=== PATIENT | female | born 1980 | race Caucasian/White ===

== ENCOUNTER 2018-01-13 13:07 | Outpatient (CLI) | payer MEDICAID, SELFPAY ==
[2018-01-14 17:36] LABS: Alternaria Tenuis IgE <0.35 kU/L; Aspergillus Fumigatus IgE <0.35 kU/L; Bermuda Grass IgE 0.65 kU/L; Cockroach IgE <0.35 kU/L; Cottonwood IgE <0.35 kU/L; D Farinae IgE <0.35 kU/L; D Pteronyssinus IgE <0.35 kU/L; Eastern Sycamore IgE <0.35 kU/L; Elm IgE <0.35 kU/L; Epicoccum purpurascens IgE <0.35 kU/L; Giant Ragweed IgE <0.35 kU/L; Oak IgE <0.35 kU/L; Penicillium chrysogenum IgE <0.35 kU/L; Red Sorrel IgE <0.35 kU/L; Rough Pigweed IgE <0.35 kU/L; Silver Birch IgE 0.95 kU/L; Stemphyllium IgE <0.35 kU/L; Walnut Tree IgE <0.35 kU/L
[2018-01-14 18:19] LABS: Cat Epithelium IgE <0.35 kU/L; Cladosporium IgE <0.35 kU/L; Cocklebur IgE <0.35 kU/L; Dog Dander IgE <0.35 kU/L; Lamb's Quarter IgE <0.35 kU/L; Short Ragweed IgE 0.79 kU/L; Timothy Grass IgE 8.39 kU/L
[2018-01-14 18:33] LABS: Wormwood IgE <0.35 kU/L
[2018-01-16 16:02] LABS: CLASS 0; Cedar Red IgE <0.10 kU/L (<0.35); Fusarium oxysporum/vasinfectum <0.35 kU/L (<0.35); Rhodotorula IgE <0.35 kU/L (<0.35)
== END 2018-01-13 13:27 ==
PROVIDERS: PCP Family Medicine; Visit Provider Otolaryngology Otolaryngology/Facial Plastic Surgery
DX: J30.9 Allergic rhinitis, unspecified (principal)
CPT/HCPCS: 36415; 86003

== ENCOUNTER 2022-11-29 09:00 | Outpatient (REF) | payer MEDICAID, SELFPAY | END 2022-11-29 09:01 | disposition home or self-care (01) | LOC: LBN 09:00 | PROVIDERS: PCP Physician Assistant; Visit Provider Registered Nurse Maternal Newborn | DX: J03.01 Acute recurrent streptococcal tonsillitis (principal); J34.3 Hypertrophy of nasal turbinates; H69.83 Other specified disorders of Eustachian tube, bilateral | CPT/HCPCS: 87070 ==

== ENCOUNTER → 2023-04-17 02:39 | Outpatient (CLI) | payer MEDICAID, SELFPAY ==
--- OUTSIDE RECORDS SUMMARY | 2023-04-17 03:08 | XMS_ITS | Continuity of Care Document ---
Author Name Unknown Organization [facility] Address [address] [place] [address] Care Team Providers Care Agricultural Research Technologist Name Role Phone Ese Leon Primary Care Physician [facility] [id number] Date(s): 03/13/22 - 03/13/[address] [id number] Discharge Disposition: Home or Self Care Attending Physician: Kay Macedo DNP Admitting Physician: Kay Macedo DNP Allergies, Adverse Reactions, Alerts Substance Reaction Severity Status azithromycin 1 Unknown Active sertraline 2 Hyponatremia Unknown Active 1Palpitation 2enviromental, hx hyponatremia with sertraline Assessment and Plan Future Appointments Diagnostic Tests Pending * Benzodiazepines Cnfrm, Ur BROOKS 03/13/22 Future Scheduled Tests Laboratory* Basic Metabolic Panel 12/18/21 * Calcium Level Total 10/09/21 Immunizations Given and Recorded Vaccine Date Status Refusal Reason SARS-CoV-2 (COVID-19) mRNA-1273 vaccine 09/30/20 R ecorded SARS-CoV-2 (COVID-19) mRNA-1273 vaccine 09/06/20 R ecorded influenza virus vaccine, live 1 02/26/20 Recorded influenza virus vaccine, live 03/05/19 Recorded tetanus/diphth/pertuss (Tdap) adult/adol 05/01/12 Recorded influenza virus vaccine, inactivated 03/06/12 Tmo rded influenza virus vaccine, inactivated 01/25/11 Tom rded influenza virus vaccine, inactivated 02/23/08 Tom rded rubella virus vaccine 04/29/00 Recorded Not Given Vaccine Date Status Refusal Reason influenza, unspecified formulation 2 12/05/21 Not Given Patient Refuses influenza, unspecified formulation 3 12/05/21 Not Given Patient Refuses influenza, unspecified formulation 4 12/05/21 Not Given Patient Refuses SARS-COV-2 (COVID-19) vaccine, unspecifi 5 12/05/21 Not Given Patient Refuses 1Result Comment: Tolerated well 2Result Comment: influenza, injectable, quadrivalent, preservative free Patient Declined Last Modified by Marcela Coronel, Pediatric Medicine 02-13-2019, 09:18 3Result Comment: influenza, injectable, quadrivalent, preservative free Patient Declined Last Modified by Nakita Joya, [employer]c Storage Architect 03-16-2021, 08:31 4Result Comment: influenza, injectable, quadrivalent, preservative free Patient Declined Last Modified by Ese Leon, [employer] Storage Architect 06-22-2021, 17:50 5Result Comment: COVID-19, mRNA, LNP-S, PF, 30 mcg/0.3 mL dose, radha-sucrose (Audio Shack) Patient Declined Last Modified by Ese Leon, [employer] Storage Architect 06-22-2021, 17:50 Medications fluticasone 50 mcg/inh nasal spray 1 sprays, Nasal, every morning, # 15.8 mL, 0 Refill(s), Pharmacy: [facility] #[id number], 167.64, cm,01/29/22 10:39:00 EDT, Height/Length Dosing, 74.84, kg, 01/29/22 10:39:00 EDT, Weight Dosing Start Date: 02/01/22 Status: Ordered LORazepam 0.5 mg oral tablet 0.5 mg = 1 tab, Oral, TID, PRN as needed for anxiety, # 90 tab, 2 Refill(s), Pharmacy: [facility] #[id number], 167.64, cm, 01/29/22 10:39:00 EDT, Height/Length Dosing, 74.84, kg, 01/29/22 10:39:00 EDT,Weight Dosing Start Date: 03/13/22 Stop Date: 06/11/22 Status: Ordered meclizine 25 mg oral tablet 25 mg = 1 tab, Oral, TID, PRN as needed for dizziness, # 30 tab, 0 Refill(s), Pharmacy: [facility] #58, 167.64, cm, 01/29/22 10:39:00 EDT, Height/Length Dosing, 74.84, kg, 01/29/22 10:39:00 EDT, Weight Dosing Start Date: 01/29/22 Status: Ordered Zoloft 50 mg oral tablet 50 mg = 1 tab, Oral, Daily, CUCO, # 30 tab, 3 Refill(s), Pharmacy: [facility] #58, 167.64, cm,01/29/22 10:39:00 EDT, Height/Length Dosing, 74.84, kg, 01/29/22 10:39:00 EDT, Weight Dosing Start Date: 03/13/22 Stop Date: 07/11/22 Status: Ordered Problem List Condition Confirmation Course Effective Dates Status H ealth Status Informant Generalized anxiety disorder Confirmed Active Hyponatremia Confirmed Active Mild depression Confirmed Active Palpitations Confirmed 09/06/20 Active Medication management Confirmed Active 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 Tremor Confirmed Active Procedures Procedure Date Related Diagnosis Body Site Status Extraction of wisdom tooth Completed Results Laboratory List Name Date Drug Screen Urine (Drug Screen Urine w/ Reflex) 03/13/22 Most recent to oldest [Reference Range]: 1 U Amph Scrn [Negative] Negative (03/13/22 9:54 AM) U Benzodia Scrn [Negative] Positive *ABN* (03/13/22 9:54 AM) U Cocaine Scrn [Negative] Negative (03/13/22 9:54 AM) U Jaclyn Scrn [Negative] Negative (03/13/22 9:54 AM) U Opiate Scrn [Negative] Negative (03/13/22 9:54 AM) U Oxy Scrn [Negative] Negative (03/13/22 9:54 AM) U PCP Scrn [Negative] Negative (03/13/22 9:54 AM) U THC Scr [Negative] Negative (03/13/22 9:54 AM) U PPX Scr [Negative] Negative (03/13/22 9:54 AM) U Methadone Scr [Negative] Negative (03/13/22 9:54 AM) U Buprenorph Scr [Negative] Negative (03/13/22 9:54 AM) U mAMP Scr [Negative] Negative (03/13/22 9:54 AM) U TCA Scr [Negative] Negative (03/13/22 9:54 AM) Social History Social History Type Response Tobacco Never tobacco user T obacco Use:. Sex Female Patient Care team information Personnel Name: Ese Leon PA-C Address: Address: [id number] [place] [address]
--- OUTSIDE RECORDS SUMMARY | 2023-04-17 03:08 | XMS_ITS | Continuity of Care Document ---
Author Name Unknown Organization [facility] Address [address] [place] [address] Care Team Providers Care Restaurant Greeter Name Role Phone Ese Leon Primary Care Physician [phone] [facility] Date(s): 08/23/22 - 08/23/[address] [address] Discharge Disposition: Home or Self Care Attending Physician: Ese Leon PA-C Admitting Physician: Ese Leon PA-C Allergies, Adverse Reactions, Alerts Substance Reaction Severity Status azithromycin 1 Unknown Active sertraline 2 Hyponatremia Unknown Active 1Palpitation 2enviromental, hx hyponatremia with sertraline Assessment and Plan Future Appointments Immunizations Given and Recorded Vaccine Date Status Refusal Reason SARS-CoV-2 (COVID-19) mRNA-1273 vaccine 09/30/20 R ecorded SARS-CoV-2 (COVID-19) mRNA-1273 vaccine 09/06/20 R ecorded influenza virus vaccine, live 1 02/26/20 Recorded influenza virus vaccine, live 03/05/19 Recorded tetanus/diphth/pertuss (Tdap) adult/adol 05/01/12 Recorded influenza virus vaccine, inactivated 03/06/12 Tom rded influenza virus vaccine, inactivated 01/25/11 Tom [...] Patient Declined Last Modified by Nakita Joya, Highway Patrol Pilot 03-16-2021, 08:31 4Result Comment: influenza, injectable, quadrivalent, preservative free Patient Declined Last Modified by Ese Leon, Highway Patrol Pilot 06-22-2021, 17:50 5Result Comment: COVID-19, mRNA, LNP-S, PF, 30 mcg/0.3 mL dose, radha-sucrose (Bitbar) Patient Declined Last Modified by Ese Leon, Highway Patrol Pilot 06-22-2021, 17:50 Medications cetirizine 10 mg oral tablet 10 mg = 1 tab, Oral, Daily, # 90 tab, 0 Refill(s), Pharmacy: [facility] #58, 168, cm, 08/19/22 4:27:00 EDT, Height/Length Dosing, 77, kg, 08/19/22 4:27:00 EDT, Weight Dosing Start Date: 08/23/22 Status: Ordered fluticasone 50 mcg/inh nasal spray 1 sprays, Nasal, every morning, 0 Refill(s) Start Date: 08/23/22 Status: Ordered LORazepam 0.5 mg oral tablet 0.5 mg = 1 tab, Oral, BID, PRN as needed for anxiety, 0 Refill(s) Start Date: 08/23/22 Status: Ordered meclizine 25 mg oral tablet 25 mg = 1 tab, Oral, Daily, # 30 tab, 0 Refill(s) Start Date: 08/23/22 Status: Ordered ondansetron 4 mg oral tablet, disintegrating 4 mg = 1 tab, Oral, every 8 hr, PRN as needed for nausea/vomiting, # 20 tab, 0 Refill(s), Pharmacy:[facility] #58, 168, cm, 08/19/22 4:27:00 EDT, Height/Length Dosing, 77, kg, 08/19/22 4:27:00EDT, Weight Dosing Start Date: 08/23/22 Status: Ordered sertraline 50 mg oral tablet 50 mg = 1 tab, Oral, Daily, # 90 tab, 0 Refill(s) Start Date: 08/23/22 Status: Ordered Problem List Condition Confirmation Course Effective Dates Status H ealth Status Informant Anxiety Confirmed 02/10/21 Active Depressive disorder Confirmed 02/10/21 Active Dizziness Confirmed Active Essential tremor Confirmed 07/25/18 Active Generalized anxiety disorder Confirmed Active Hyponatremia Confirmed Active Hyponatremia Confirmed 02/10/21 Active 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 Mild depression Confirmed Active Multinodular goiter Confirmed 05/03/21 Active Palpitations Confirmed 09/06/20 Active Medication management Confirmed Active 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 Sex Female Patient Care team information Care Team Personnel Name: Ese Leon PA-C Position: Physician Member Role: Primary Care Physician Address: Address: [address] Care Team Related Persons Name: SR. FRIED JAMES K. Name: AGUSTIN CLEMENT Address: Home [address] [place], [id number]
--- OUTSIDE RECORDS SUMMARY | 2023-04-17 03:08 | XMS_ITS | Continuity of Care Document ---
Author Name Unknown Organization [facility] Address [address] [place] [address] Care Team Providers Care Wrapping Machine Operator Name Role Phone Ese Leon Primary Care Physician [phone] [facility] Date[facility]s): 01/29/22 - 01/29/[address] [phone] [place] Encounter Diagnosis Dizziness(Discharge Diagnosis) - 01/29/22 Discharge Disposition: Home Attending Physician: Leonardo Yates MD Admitting Physician: Leonardo Yates MD Allergies, Adverse Reactions, Alerts Substance Reaction Severity Status azithromycin 1 Unknown Active sertraline 2 Hyponatremia Unknown Active 1Palpitation 2enviromental, hx hyponatremia with sertraline Assessment and Plan Future Appointments Future Scheduled Tests Laboratory* Basic Metabolic Panel 12/18/21 * Calcium Level Total 10/09/21 Functional Status 01/29/22 Family Member Travel History No recent t ravel Recent Travel History No recent travel Other exposure to Infectious Disease Non e Immunizations Given and Recorded Vaccine Date Status [...] Patient Declined Last Modified by Nakita Joya, Master At Arms 03-16-2021, 08:31 4Result Comment: influenza, injectable, quadrivalent, preservative free Patient Declined Last Modified by Ese Leon, Master At Arms 06-22-2021, 17:50 5Result Comment: COVID-19, mRNA, LNP-S, PF, 30 mcg/0.3 mL dose, radha-sucrose ([employer]) Patient Declined Last Modified by Ese Leon, Master At Arms 06-22-2021, 17:50 Medications LORazepam 0.5 mg oral tablet 0.5 mg = 1 tab, Oral, TID, PRN as needed for anxiety, # 90 tab, 2 Refill(s), Pharmacy: [facility] #58 Start Date: 12/12/21 Stop Date: 03/12/22 Status: Ordered meclizine 25 mg oral tablet 25 mg = 1 tab, Oral, TID, PRN as needed for dizziness, # 30 tab, 0 Refill(s), Pharmacy: [facility] #58, 167.64, cm, 01/29/22 10:39:00 EDT, Height/Length Dosing, 74.84, kg, 01/29/22 10:39:00 EDT, Weight Dosing Start Date: 01/29/22 Status: Ordered Zoloft 50 mg oral tablet 50 mg = 1 tab, Oral, Daily, CUCO, # 30 tab, 2 Refill(s), Pharmacy: [facility] #58 Start Date: 12/12/21 Stop Date: 03/12/22 Status: Ordered Problem List Condition Confirmation Course Effective Dates Status H ealth Status Informant Generalized anxiety disorder Confirmed Active Hyponatremia Confirmed Active Palpitations Confirmed 09/06/20 Active 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 Tremor Confirmed Active Procedures Procedure Date Related Diagnosis Body Site Status Extraction of wisdom tooth Completed Results Laboratory List Name Date SARS-CoV-2 (COVID-19) RNA (ID Now) CBC w/ Diff 01/29/22 Comprehensive Metabolic Panel 01/29/22 Magnesium Level 01/29/22 Test Urine Qual 01/29/22 Thyroid Stimulating Hormone (TSH) 2 Troponin-I 01/29/22 Urinalysis with Micro if Indicated and C ulture if Indicated 01/29/22 Automated Diff 01/29/22 Most recent to oldest [Reference Range]: 1 WBC [5.0-10.0 x10^3/mcL] 5.8 x10^3/mcL (01/29/22 10:58 AM) RBC [4.1-5.3 x10^6/mcL] 4.4 x10^6/mcL (01/29/22 10:58 AM) Neutro Auto [40.0-75.0 %] 69.9 % (01/29/22 10:58 AM) Lymph Auto [20.0-50.0 %] 25.8 % (01/29/22 10:58 AM) [place] Auto [2.0-15.0 %] 3.6 % (01/29/22 10:58 AM) Basophil Auto [0.0-1.0 %] 0.3 % (01/29/22 10:58 AM) BUN [7-18 mg/dL] 10 mg/dL (01/29/22 10:58 AM) UA Color Pale Yellow (01/29/22 10:58 AM) Glucose Level [74-106 mg/dL] 108 mg/dL *HI* (01/29/22 10:58 AM) Potassium Level [3.5-5.1 mmol/L] 3.7 mmo l/L (01/29/22 10:58 AM) MCV [80.0-103.0 fL] 91.8 fL (01/29/22 10:58 AM) UA Urobilinogen Normal (01/29/22 10:58 AM) UA Bili [Negative] Negative (01/29/22 10:58 AM) UA Ketones Negative (01/29/22 10:58 AM) AST [15-37 unit/L] 20 unit/L (01/29/22 10:58 AM) ALT [16-63 unit/L] 27 unit/L (01/29/22 10:58 AM) MCHC [31.0-35.0 g/dL] 34.3 g/dL (01/29/22 10:58 AM) Troponin-I [0.0-51.4 pg/mL] <5.0 pg/mL (01/29/22 10:58 AM) Sodium Level [136-145 mmol/L] 131 mmol/L *LOW* (01/29/22 10:58 AM) UA Leuk Est Negative (01/29/22 10:58 AM) UA Nitrite Negative (01/29/22 10:58 AM) UA Glucose [Negative] Negative (01/29/22 10:58 AM) Hct [37.0-47.0 %] 40.5 % (01/29/22 10:58 AM) Calcium Level [8.5-10.1 mg/dL] 9.1 mg/dL (01/29/22 10:58 AM) Albumin Level [3.4-5.0 g/dL] 4.0 g/dL (01/29/22 10:58 AM) Protein Total [6.4-8.2 g/dL] 7.8 g/dL (01/29/22 10:58 AM) UA Protein Negative (01/29/22 10:58 AM) MCH [26.0-32.0 pg] 31.5 pg (01/29/22 10:58 AM) Magnesium Level [1.8-2.4 mg/dL] 2.0 mg/d L (01/29/22 10:58 AM) Neutro Absolute 4.1 x10^3/mcL *NA* (01/29/22 10:58 AM) Bilirubin Total [0.2-1.0 mg/dL] 0.4 mg/d L (01/29/22 10:58 AM) Hgb [12.0-16.0 g/dL] 13.9 g/dL (01/29/22 10:58 AM) Alk Phos [46-146 unit/L] 51 unit/L (01/29/22 10:58 AM) UA Blood Negative (01/29/22 10:58 AM) UA Spec Grav <=1.005 *NA* (01/29/22 10:58 AM) Platelets [130-450 x10^3/mcL] 238 x10^3/ mcL (01/29/22 10:58 AM) CO2 [21-32 mmol/L] 31 mmol/L (01/29/22 10:58 AM) TSH [0.358-3.740 mcIntlUnit/mL] 0.793 mc IntlUnit/mL (01/29/22 10:58 AM) UA pH 6.0 *NA* (01/29/22 10:58 AM) eGFR Non-AA [>=60] 113 (01/29/22 10:58 AM) eGFR AA [>=60] 113 (01/29/22 10:58 AM) UA Appear Clear (01/29/22 10:58 AM) Chloride Level [98-107 mmol/L] 96 mmol/L *LOW* (01/29/22 10:58 AM) RDW-CV [11.7-17.0 %] 11.9 % (01/29/22 10:58 AM) Imm Gran Auto [0.0-0.9 %] 0.2 % (01/29/22 10:58 AM) Creatinine Level [0.55-1.02 mg/dL] 0.70 mg/dL (01/29/22 10:58 AM) SARS-CoV-2 (COVID-19) RNA (ID Now) [Not Detected] Not Detected (01/29/22 11:06 AM) Anion Gap [8-16 mmol/L] 4 mmol/L *LOW* (01/29/22 10:58 AM) Eos, Auto [1.0-6.0 %] 0.2 % *LOW* (01/29/22 10:58 AM) U hCG Ql Negative (01/29/22 10:58 AM) Vital Signs Most recent to oldest [Reference Range]: 1 2 3 Temperature Temporal Artery [36-38 Deg C] 35.9 Deg C *LOW* (01/29/22 10:25 AM) Peripheral Pulse Rate [60-100 bpm] 73 bpm (01/29/22 2:22 PM) 79 bpm (01/29/22 11:31 AM) 87 bpm (01/29/22 11:00 AM) Heart Rate Monitored [60-100 bpm] 74 bpm (01/29/22:22 PM) 80 bpm (01/29/22:31 AM) 88 bpm (01/29/22 11:00 AM) Respiratory Rate [12-24 br/min] 18 br/min (01/29/22:22 PM) 15 br/min (01/29/22:31 AM) 18 br/min (01/29/22 11:00 AM) Blood Pressure [90-140/60-90 mmHg] 117/82mmHg (01/29/22:22 PM) 119/83mmHg (01/29/22:31 AM) 121/82mmHg (01/29/22 11:00 AM) Weight Dosing 74.84 kg (01/29/22 10:39 AM) Weight Estimated 74.84 kg (01/29/22 10:25 AM) Height/Length Dosing 167.640 cm (01/29/22 10:39 AM) Height/Length Estimated 167.640 cm (01/29/22 10:25 AM) Social History Social History Type Response Tobacco Never tobacco user T obacco Use:. Sex Female Hospital Discharge Instructions Patient Education 01/29/2022 13:12:12 Dizziness Dizziness Dizziness is a common problem. It is a feeling of unsteadiness or light- headedness. You may feel like you are about to faint. Dizziness can lead to injury if you stumble or fall. Anyone can become dizzy, but dizziness is more common in older adults. This condition can be caused by a number of things, including medicines, dehydration, or illness. Follow these instructions at home: Eating and drinking ??? Drink enough fluid to keep your urine pale yellow. This helps to keep you from becoming dehydrated. Try to drink more clear fluids, such as water. ??? Do not drink alcohol. ??? Limit your caffeine intake if told to do so by your health care provider. Check ingredients andnutrition facts to see if a food or beverage contains caffeine. ??? Limit your salt (sodium) intake if told to do so by your health care provider. Check ingredients and nutrition facts to see if a food or beverage contains sodium. Activity ??? Avoid making quick movements. ??? Rise slowly from chairs and steady yourself until you feel okay. ??? In the morning, first sit up on the side of the bed. When you feel okay, stand slowly while youhold onto something until you know that your balance is good. ??? If you need to bore miner operator one place for a long time, move your legs often. Tighten and relax the muscles in your legs while you are standing. ??? Do not drive or use machinery if you feel dizzy. ??? Avoid bending down if you feel dizzy. Place items in your home so that they are easy for you toreach without leaning over. Lifestyle ??? Do not use any products that contain nicotine or tobacco. These products include cigarettes, chewing tobacco, and vaping devices, such as e-cigarettes. If you need help quitting, ask your health care provider. ??? Try to reduce your stress level by using methods such as yoga or meditation. Talk with your health care provider if you need help to manage your stress. General instructions ??? Watch your dizziness for any changes. ??? Take [id number] and prescription medicines only as told by your health care provider. Talk with your health care provider if you think that your dizziness is caused by a medicine that you are taking. ??? Tell a friend or a family member that you are feeling dizzy. If he or she notices any changes in your behavior, have this person call your health care provider. ??? Keep all follow-up visits. This is important. Contact a health care provider if: ??? Your dizziness does not go away or you have new symptoms. ??? Your dizziness or light-headedness gets worse. ??? You feel nauseous. ??? You have reduced hearing. ??? You have a fever. ??? You have neck pain or a stiff neck. ??? Your dizziness leads to an injury or a fall. Get help right away if: ??? You vomit or have diarrhea and are unable to eat or drink anything. ??? You have problems talking, walking, swallowing, or using your arms, hands, or legs. ??? You feel generally weak. ??? You have any bleeding. ??? You are not thinking clearly or you have trouble forming sentences. It may take a friend or family member to notice this. ??? You have chest pain, abdominal pain, shortness of breath, or sweating. ??? Your vision changes or you develop a severe headache. These symptoms may represent a serious problem that is an emergency. Do not wait to see if the symptoms will go away. Get medical help right away. Call your local emergency services (911 in the [place] Do not drive yourself to the hospital. Summary ??? Dizziness is a feeling of unsteadiness or light-headedness. This condition can be caused by a number of things, including medicines, dehydration, or illness. ??? Anyone can become dizzy, but dizziness is more common in older adults. ??? Drink enough fluid to keep your urine pale yellow. Do not drink alcohol. ??? Avoid making quick movements if you feel dizzy. Monitor your dizziness for any changes. This information is not intended to replace advice given to you by your health care provider. Make sure you discuss any questions you have with your health care provider. Document Revised: 03/20/2021 Document Reviewed: 03/20/2021 [employer] Patient Education ?? 2021 [employer] Follow Up Care 01/29/2022 10:25:17 With:Ese Leon PA-C Address: [place] [address]- When:2 to 4 days Comments:If needed for recheck on any persistent symptoms Patient Care team information Personnel Name: Ese Leon PA-C Address: Address: [address]
--- OUTSIDE RECORDS SUMMARY | 2023-04-17 03:08 | XMS_ITS | Continuity of Care Document ---
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 Phone Ese Leon Primary Care Physician [facility] Date[facility]s): 08/03/22 - 08/03/[address] [address] Discharge Disposition: Home or Self Care Attending Physician: Ese Leon PA-C Admitting Physician: Ese Leon PA-C Referring Physician: Ese Leon PA-C Allergies, Adverse Reactions, [...] Patient Declined Last Modified by Nakita Joya, Steerer 03-16-2021, 08:31 4Result Comment: influenza, injectable, quadrivalent, preservative free Patient Declined Last Modified by Ese Leon, Steerer 06-22-2021, 17:50 5Result Comment: COVID-19, mRNA, LNP-S, PF, 30 mcg/0.3 mL dose, radha-sucrose ([facility]) Patient Declined Last Modified by Ese Leon, Steerer 06-22-2021, 17:50 Medications fluticasone 50 mcg/inh nasal spray 1 sprays, Nasal, every morning, # 15.8 mL, 1 Refill(s), Pharmacy: [facility] #58, 167.64, cm,01/29/22 10:39:00 EDT, Height/Length Dosing, 74.84, kg, 01/29/22 10:39:00 EDT, Weight Dosing Start Date: 06/25/22 Status: Ordered LORazepam 0.5 mg oral tablet 0.5 mg = 1 tab, Oral, QID, PRN as needed for anxiety, # 112 tab, 2 Refill(s), Pharmacy: [facility] #58, 167.64, cm, 01/29/22 10:39:00 EDT, Height/Length Dosing, 74.84, kg, 01/29/22 10:39:00 EDT, Weight Dosing Start Date: 06/08/22 Stop Date: 08/31/22 Status: Ordered meclizine 25 mg oral tablet 25 mg = 1 tab, Oral, TID, PRN as needed for dizziness, # 30 tab, 0 Refill(s), Pharmacy: [facility] #58, 167.64, cm, 01/29/22 10:39:00 EDT, Height/Length Dosing, 74.84, kg, 01/29/22 10:39:00 EDT, Weight Dosing Start Date: 01/29/22 Status: Ordered Medrol 4 mg oral tablet 1 packets, Oral, Once, as directed on package labeling, # 21 tab, 0 Refill(s), Pharmacy: [facility] #58, 167.64, cm, 01/29/22 10:39:00 EDT, Height/Length Dosing, 74.84, kg, 01/29/22 10:39:00 EDT, Weight Dosing Start Date: 08/03/22 Status: Ordered Zoloft 50 mg oral tablet 50 mg = 1 tab, Oral, Daily, CUCO, # 30 tab, 2 Refill(s), Pharmacy: [facility] #58, 167.64, cm,01/29/22 10:39:00 EDT, Height/Length Dosing, 74.84, kg, 01/29/22 10:39:00 EDT, Weight Dosing Start Date: 06/08/22 Stop Date: 09/06/22 Status: Ordered Problem List Condition Confirmation Course [...] 05/10/2022 Neg/Neg 2Due 05/10/2022 Neg/Neg Neg/Neg Results Laboratory List Name Date Automated Diff 08/03/22 Basic Metabolic Panel (BMP) 08/03/22 CBC w/ Diff 08/03/22 Mononucleosis Screen 08/03/22 Most recent to oldest [Reference Range]: 1 WBC [5.0-10.0 x10^3/mcL] 6.9 x10^3/mcL (08/03/22 2:56 PM) RBC [4.1-5.3 x10^6/mcL] 4.2 x10^6/mcL (08/03/22 2:56 PM) Neutro Auto [40.0-75.0 %] 60.7 % (08/03/22 2:56 PM) Lymph Auto [20.0-50.0 %] 31.5 % (08/03/22 2:56 PM) Winn Auto [2.0-15.0 %] 6.1 % (08/03/22 2:56 PM) Basophil Auto [0.0-1.0 %] 0.7 % (08/03/22 2:56 PM) BUN [7-18 mg/dL] 17 mg/dL (08/03/22 2:56 PM) Glucose Level [74-106 mg/dL] 97 mg/dL (08/03/22 2:56 PM) Potassium Level [3.5-5.1 mmol/L] 4.0 mmo l/L (08/03/22 2:56 PM) MCV [80.0-96.0] 93.1 (08/03/22 2:56 PM) MCHC [31.0-35.0 g/dL] 33.0 g/dL (08/03/22 2:56 PM) Sodium Level [136-145 mmol/L] 136 mmol/L (08/03/22 2:56 PM) Hct [37.0-47.0 %] 39.4 % (08/03/22 2:56 PM) Calcium Level [8.5-10.1 mg/dL] 8.9 mg/dL (08/03/22 2:56 PM) MCH [26.0-32.0 pg] 30.7 pg (08/03/22 2:56 PM) Neutro Absolute 4.2 x10^3/mcL *NA* (08/03/22 2:56 PM) Hgb [12.0-16.0 g/dL] 13.0 g/dL (08/03/22 2:56 PM) Platelets [130-450 x10^3/mcL] 241 x10^3/ mcL (08/03/22 2:56 PM) CO2 [21-32 mmol/L] 29 mmol/L (08/03/22 2:56 PM) eGFR Non-AA [>=60] 99 (08/03/22 2:56 PM) eGFR AA [>=60] 99 (08/03/22 2:56 PM) Chloride Level [98-107 mmol/L] 101 mmol/ L (08/03/22 2:56 PM) RDW-CV [11.7-17.0 %] 12.4 % (08/03/22 2:56 PM) Imm Gran Auto [0.0-0.9 %] 0.3 % (08/03/22 2:56 PM) Creatinine Level [0.55-1.02 mg/dL] 0.78 mg/dL (08/03/22 2:56 PM) Eos, Auto [1.0-6.0 %] 0.7 % *LOW* (08/03/22 2:56 PM) Mononucleosis Screen [Negative] Negative (08/03/22 2:56 PM) Orders for Microbiology Reports Name Date Throat Culture 08/03/22 Microbiology Reports TEST:Throat Culture STATUS:Order in Progress BODY SITE: SOURCE:Throat COLLECTED DATE/TIME:08/03/22 3:44 PM PRELIMINARY REPORT Normal Sirisha at 24 hours Social History Social History Type Response Tobacco Never tobacco user T obacco Use:. Sex Female Patient Care team information Care Team Personnel Name: Ese Leon PA-C Position: Physician Member Role: Primary Care Physician Address: Address: [address] [address]- Care Team Related Persons Name: SR. FARIHA, CAROL Duran Name: AGUSTIN CLEMENT Address: Home [address] [facility] [id number]
--- OUTSIDE RECORDS SUMMARY | 2023-04-17 03:08 | XMS_ITS | Continuity of Care Document ---
Author Name Unknown Organization 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 Role Phone Ese Leon Primary Care Physician [facility]/08[facility] - 05/08/22 [facility] [address] [place] [address] [place] Encounter Diagnosis Pain in thoracic spine(Discharge Diagnosis) - 05/08/22 Dyspnea(Discharge Diagnosis) - 05/08/22 Discharge Disposition: Home or Self Care Attending Physician: Ayde Bell Admitting Physician: Ayde Bell Referring Physician: Ayde Bell Allergies, Adverse Reactions, Alerts Substance Reaction Severity [...] free Patient Declined Last Modified by Marcela oCronel, Pediatric Medicine 02-13-2019, 09:18 3Result Comment: influenza, injectable, quadrivalent, preservative free Patient Declined Last Modified by Nakita Joya, Director Medical Surgical 03-16-2021, 08:31 4Result Comment: influenza, injectable, quadrivalent, preservative free Patient Declined Last Modified by Ese Leon, Director Medical Surgical 06-22-2021, 17:50 5Result Comment: COVID-19, mRNA, LNP-S, PF, 30 mcg/0.3 mL dose, radha-sucrose ([employer]) Patient Declined Last Modified by Ese Leon, Director Medical Surgical 06-22-2021, 17:50 Medications fluticasone 50 mcg/inh nasal spray 1 sprays, Nasal, every morning, # 15.8 mL, 0 Refill(s), Pharmacy: [facility] #58, 167.64, cm,01/29/22 10:39:00 EDT, Height/Length Dosing, 74.84, kg, 01/29/22 10:39:00 EDT, Weight Dosing Start Date: 02/01/22 Status: Ordered LORazepam 0.5 mg oral tablet 0.5 mg = 1 tab, Oral, TID, PRN as needed for anxiety, # 90 tab, 2 Refill(s), Pharmacy: [facility] #58, 167.64, cm, 01/29/22 10:39:00 EDT, Height/Length Dosing, 74.84, kg, 01/29/22 10:39:00 EDT,Weight Dosing Start Date: 03/13/22 Stop Date: 06/11/22 Status: Ordered LORazepam 0.5 mg oral tablet 0.5 mg = 1 tab, Oral, QID, PRN as needed for anxiety, # 112 tab, 1 Refill(s), Pharmacy: [facility] #58, 167.64, cm, 01/29/22 10:39:00 EDT, Height/Length Dosing, 74.84, kg, 01/29/22 10:39:00 EDT, Weight Dosing Start Date: 05/04/22 Stop Date: 06/29/22 Status: Ordered meclizine 25 mg oral tablet 25 mg = 1 tab, Oral, TID, PRN as needed for dizziness, # 30 tab, 0 Refill(s), Pharmacy: [facility] #58, 167.64, cm, 01/29/22 10:39:00 EDT, Height/Length Dosing, 74.84, kg, 01/29/22 10:39:00 EDT, Weight Dosing Start Date: 01/29/22 Status: Ordered Zoloft 50 mg oral tablet 50 mg = 1 tab, Oral, Daily, [facility], # 30 tab, 3 Refill(s), Pharmacy: [facility] #58, 167.64, cm,01/29/22 10:39:00 EDT, Height/Length Dosing, 74.84, kg, 01/29/22 10:39:00 EDT, Weight Dosing Start Date: 03/13/22 Stop Date: 07/11/22 Status: Ordered Problem List Condition Confirmation Course Effective Dates Status H ealth Status Informant Dizziness Confirmed Active Generalized anxiety disorder Confirmed Active Hyponatremia Confirmed Active Cervical dystonia Confirmed Active Mild depression Confirmed Active Palpitations Confirmed 09/06/20 Active Medication management Confirmed Active 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 Sex Female Patient Care team information Personnel Name: Ese Leon PA-C Address: Address: [address] [address]- [place]
--- OUTSIDE RECORDS SUMMARY | 2023-04-17 03:08 | XMS_ITS | Continuity of Care Document ---
Author Name Unknown Organization 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 Name Role Phone Ese Leon Primary Care Physician Encounter NCTY_DC Date(s): 08/19/22 - 08/19/[address] [phone] [place] Encounter Diagnosis Vomiting(Discharge Diagnosis) - 08/19/22 Discharge Disposition: Home or Self Care Attending Physician: Martina Huerta MD Admitting Physician: Martina Huerta MD Allergies, Adverse Reactions, Alerts Substance Reaction Severity Status azithromycin 1 Unknown Active sertraline 2 Hyponatremia Unknown Active 1Palpitation 2enviromental, hx hyponatremia with sertraline Assessment and Plan Future Appointments Functional Status 08/19/22 Family Member Travel History No recent t [...] Patient Declined Last Modified by Nakita Joya, Employee Development Director 03-16-2021, 08:31 4Result Comment: influenza, injectable, quadrivalent, preservative free Patient Declined Last Modified by Ese Leon, Employee Development Director 06-22-2021, 17:50 5Result Comment: COVID-19, mRNA, LNP-S, PF, 30 mcg/0.3 mL dose, radha-sucrose ([employer]ang) Patient Declined Last Modified by Ese Leon, Employee Development Director 06-22-2021, 17:50 Medications fluticasone 50 mcg/inh nasal spray 1 sprays, Nasal, every morning, # 15.8 mL, 1 Refill(s), [facility]acy: [facility], 167.64, cm,01/29/22 10:39:00 EDT, Height/Length Dosing, 74.84, kg, 01/29/22 10:39:00 EDT, Weight Dosing Start Date: 06/25/22 Status: Ordered LORazepam 0.5 mg oral tablet 0.5 mg = 1 tab, Oral, QID, PRN as needed for anxiety, # 112 tab, 2 Refill(s), [facility]acy: [facility], 167.64, cm, 01/29/22 10:39:00 EDT, Height/Length Dosing, 74.84, kg, 01/29/22 10:39:00 EDT, Weight Dosing Start Date: 06/08/22 Stop Date: 08/31/22 Status: Ordered meclizine 25 mg oral tablet 25 mg = 1 tab, Oral, TID, PRN as needed for dizziness, # 30 tab, 0 Refill(s), Pharmacy: [facility], 167.64, cm, 01/29/22 10:39:00 EDT, Height/Length Dosing, 74.84, kg, 01/29/22 10:39:00 EDT, Weight Dosing Start Date: 01/29/22 Status: Ordered Medrol 4 mg oral tablet 1 packets, Oral, Once, as directed on package labeling, # 21 tab, 0 Refill(s), Pharmacy: [facility], 167.64, cm, 01/29/22 10:39:00 EDT, Height/Length Dosing, 74.84, kg, 01/29/22 10:39:00 EDT, Weight Dosing Start Date: 08/03/22 Status: Ordered Zoloft 50 mg oral tablet 50 mg = 1 tab, Oral, Daily, CUCO, # 30 tab, 2 Refill(s), Pharmacy: [facility], 167.64, cm,01/29/22 10:39:00 EDT, Height/Length Dosing, [...] Neg/Neg Neg/Neg Results Laboratory List Name Date Strep A (ID NOW) 08/19/22 CBC w/ Diff 08/19/22 Comprehensive Metabolic Panel 08/19/22 Automated Diff 08/19/22 Most recent to oldest [Reference Range]: 1 WBC [5.0-10.0 x10^3/mcL] 4.5 x10^3/mcL *LOW* (08/19/22 4:45 AM) RBC [4.1-5.3 x10^6/mcL] 4.4 x10^6/mcL (08/19/22 4:45 AM) Neutro Auto [40.0-75.0 %] 73.6 % (08/19/22 4:45 AM) Lymph Auto [20.0-50.0 %] 20.2 % (08/19/22 4:45 AM) Grimes Auto [2.0-15.0 %] 5.1 % (08/19/22 4:45 AM) Basophil Auto [0.0-1.0 %] 0.2 % (08/19/22 4:45 AM) BUN [7-18 mg/dL] 10 mg/dL (08/19/22 4:45 AM) Glucose Level [74-106 mg/dL] 118 mg/dL *HI* (08/19/22 4:45 AM) Potassium Level [3.5-5.1 mmol/L] 3.2 mmo l/L *LOW* (08/19/22 4:45 AM) MCV [80.0-96.0] 90.3 (08/19/22 4:45 AM) AST [15-37 unit/L] 20 unit/L (08/19/22 4:45 AM) ALT [14-59 unit/L] 22 unit/L (08/19/22 4:45 AM) MCHC [31.0-35.0 g/dL] 33.7 g/dL (08/19/22 4:45 AM) Sodium Level [136-145 mmol/L] 137 mmol/L (08/19/22 4:45 AM) Hct [37.0-47.0 %] 40.1 % (08/19/22 4:45 AM) Calcium Level [8.5-10.1 mg/dL] 8.1 mg/dL *LOW* (08/19/22 4:45 AM) Albumin Level [3.4-5.0 g/dL] 3.6 g/dL (08/19/22 4:45 AM) Protein Total [6.4-8.2 g/dL] 7.4 g/dL (08/19/22 4:45 AM) MCH [26.0-32.0 pg] 30.4 pg (08/19/22 4:45 AM) Neutro Absolute 3.3 x10^3/mcL *NA* (08/19/22 4:45 AM) Bilirubin Total [0.2-1.0 mg/dL] 0.4 mg/d L (08/19/22 4:45 AM) Hgb [12.0-16.0 g/dL] 13.5 g/dL (08/19/22 4:45 AM) Alk Phos [46-146 unit/L] 58 unit/L (08/19/22 4:45 AM) Platelets [130-450 x10^3/mcL] 233 x10^3/ mcL (08/19/22 4:45 AM) CO2 [21-32 mmol/L] 27 mmol/L (08/19/22 4:45 AM) eGFR Non-AA [>=60] 105 (08/19/22 4:45 AM) eGFR AA [>=60] 105 (08/19/22 4:45 AM) Chloride Level [98-107 mmol/L] 101 mmol/ L (08/19/22 4:45 AM) RDW-CV [11.7-17.0 %] 12.1 % (08/19/22 4:45 AM) Imm Gran Auto [0.0-0.9 %] 0.2 % (08/19/22 4:45 AM) Strep A -IDNOW [Not Detected] Not Detect ed (08/19/22 5:10 AM) Creatinine Level [0.55-1.02 mg/dL] 0.74 mg/dL (08/19/22 4:45 AM) Eos, Auto [1.0-6.0 %] 0.7 % *LOW* (08/19/22 4:45 AM) Vital Signs Most recent to oldest [Reference Range]: 1 2 Temperature Temporal Artery [36-38 Deg C ] 36.5 Deg C (08/19/22 7:41 AM) 36.3 Deg C (08/19/22 4:18 AM) Peripheral Pulse Rate [60-100 bpm] 76 bp m (08/19/22 7:41 AM) 87 bpm (08/19/22 4:18 AM) Respiratory Rate [12-24 br/min] 16 br/mi n (08/19/22 7:41 AM) 16 br/min (08/19/22 4:18 AM) Blood Pressure [90-140/60-90 mmHg] 110/7 2mmHg (08/19/22 7:41 AM) 103/76mmHg (08/19/22 4:18 AM) Weight Dosing 77.00 kg (08/19/22 4:27 AM) Weight Estimated 77.00 kg (08/19/22 4:18 AM) Height/Length Dosing 168.000 cm (08/19/22 4:27 AM) Height/Length Estimated 168.000 cm (08/19/22 4:18 AM) Social History Social History Type Response Tobacco Never tobacco user T obacco Use:. Sex Female Hospital Discharge Instructions Patient Education 08/19/2022 05:43:53 Nausea and Vomiting, Adult Nausea and Vomiting, Adult Nausea is the feeling that you have an upset stomach or that you are about to vomit. Vomiting is when stomach contents are thrown up and out of the mouth as a result of nausea. Vomiting can make you feel weak and cause you to become dehydrated. Dehydration can make you feel tired and thirsty, cause you to have a dry mouth, and decrease how often you urinate. Older adults and people with other diseases or a weak disease-fighting system (immune system) are at higher risk for dehydration. It is important to treat your nausea and vomiting as told by your health care provider. Follow these instructions at home: Watch your symptoms for any changes. Tell your health care provider about them. Follow these instructions to care for yourself at home. Eating and drinking ??? Take an oral rehydration solution (ORS). This is a drink that is sold at pharmacies and retail stores. ??? Drink clear fluids slowly and in small amounts as you are able. Clear fluids include water, icechips, low-calorie sports drinks, and fruit juice that has water added (diluted fruit juice). ??? Eat bland, fddn-zc-vhlcdx foods in small amounts as you are able. These foods include bananas, applesauce, rice, lean meats, toast, and crackers. ??? Avoid fluids that contain a lot of sugar or caffeine, such as energy drinks, sports drinks, andsoda. ??? Avoid alcohol. ??? Avoid spicy or fatty foods. General instructions ??? Take duqh-nmj-ylrjnfi and prescription medicines only as told by your health care provider. ??? Drink enough fluid to keep your urine pale yellow. ??? Wash your hands often using soap and water. If soap and water are not available, use hand automation qa analyst. ??? Make sure that all people in your household wash their hands well and often. ??? Rest at home while you recover. ??? Watch your condition for any changes. ??? Breathe slowly and deeply when you feel nauseated. ??? Keep all follow-up visits as told by your health care provider. This is important. Contact a health care provider if: ??? Your symptoms get worse. ??? You have new symptoms. ??? You have a fever. ??? You cannot drink fluids without vomiting. ??? Your nausea does not go away after 2 days. ??? You feel light-headed or dizzy. ??? You have a headache. ??? You have muscle cramps. ??? You have a rash. ??? You have pain while urinating. Get help right away if: ??? You have pain in your chest, neck, arm, or jaw. ??? You feel extremely weak or you faint. ??? You have persistent vomiting. ??? You have vomit that is bright red or looks like black coffee grounds. ??? You have bloody or black stools or stools that look like tar. ??? You have a severe headache, a stiff neck, or both. ??? You have severe pain, cramping, or bloating in your abdomen. ??? You have difficulty breathing, or you are breathing very quickly. ??? Your heart is beating very quickly. ??? Your skin feels cold and clammy. ??? You feel confused. ??? You have signs of dehydration, such as: ??? Dark urine, very little urine, or no urine. ??? Cracked lips. ??? Dry mouth. ??? Sunken eyes. ??? Sleepiness. ??? Weakness. These symptoms may represent a serious problem that is an emergency. Do not wait to see if the symptoms will go away. Get medical help right away. Call your local emergency services (911 in the [place] Do not drive yourself to the hospital. Summary ??? Nausea is the feeling that you have an upset stomach or that you are about to vomit. As nausea gets worse, it can lead to vomiting. Vomiting can make you feel weak and cause you to become dehydrated. ??? Follow instructions from your health care provider about eating and drinking to prevent dehydration. ??? Take pjma-lez-vekbkhs and prescription medicines only as told by your health care provider. ??? Contact your health care provider if your symptoms get worse, or you have new symptoms. ??? Keep all follow-up visits as told by your health care provider. This is important. This information is not intended to replace advice given to you by your health care provider. Make sure you discuss any questions you have with your health care provider. Document Revised: 07/05/2021 Document Reviewed: 09/23/2018 [employer] Patient Education ?? 2021 [employer]. Follow Up Care 08/19/2022 04:18:25 With:Follow up with primary care provider Address: When:1 to 2 weeks Physician Emergency department Note * Martina Huerta MD: PERFORM Event Display: ED Note Physician Authored Date: [id number] ANY CLEMENT :1980 Age:41 years Sex:Female Visit Date:08/19/2022 Primary Care Physician: Ese Leon PA-C Basic Information Time Seen: Martina Huerta MD / 08/19/2022 04:29 Chief Complaint Patient c/o vomiting since Saturday, feels dizzy, nauseous, sore throat, diffuse abdominal pain. ??Slight diarrhea. ??Took Tylenol and Motrin yesterday afternoon History Of Present Illness: Patient reports that she had takeout on Saturday and did not feel well after that??she states that she has had vomiting??15 times since then??patient tried some Tylenol ibuprofen??for headache yesterday??without significant relief.?? Patient has not had diarrhea she states she has not??been able to go no fever no chills no ear??or nose pain??positive slight??sore throat patient states her daughter has strep.?? Patient reports??some abdominal discomfort and urinary symptoms??no extremity edema no skin rashes.?? Patient reports that other family members have this take out??that she had on Saturday and has slight upset stomach??but none of the vomiting that she has had.?? Review of Systems: see hpi for ros Physical Exam Vitals & Measurements T:??36.3?C ??(Temporal Artery)?? HR:??87??(Peripheral)?? RR:??16?? BP:??103/76?? SpO2:??98%?? HT:??168.000??cm?? WT:??77.00??kg??(Estimated)?? Pain Score:??8?? O2 Therapy:??Room air?? General: Alert and oriented, well nourished,?No??acute distress Eye: PER?Normal??conjunctiva,??No??scleral icterus HENT: Normocephalic,??nontraumatic??Normal hearing, slight erythema posterior pharynx??no posteriorpharynx swelling Neck: Supple, non-tender,?No??lymphadenopathy Lungs: Clear to auscultation,?Non-labored?? respiration Heart:?Normal?? rate,?Regular??rhythm,?No??murmur,?No??gallop,?No??edema Chest: wall excursion wnl no abnormal movements no obvious deformities Abdomen: Soft, mild diffuse nonspecific??tenderness no rebound??no organomegaly, non-distended,?Normal?? bowel sounds,?No??masses Musculoskeletal:?Normal?? range of motion and strength,?No??tenderness,?No??swelling Skin: Skin is warm, dry and pink,?No??rashes,?No??lesions Neurologic: Awake, alert and oriented X4 Psychiatric: Cooperative, appropriate mood and affect Medical Decision Making: For MDM please see under assessment and plan Procedure No Qualifying Data Assessment/Plan 1.??Vomiting??R11.10 Patient felt improved after??IV Zofran??1-1/2 L of IV fluids??patient will stay for the remainder of her normal saline with??20 mEq of??potassium??and then will be discharged home.?? Patient also received her IV 0.5 mg Ativan??as she would be due for an oral dose of her Ativan.?? I think this is likely either a gastroenteritis for patient or she is thinking may be some food poisoning??which potentially could be??although??we are seeing quite a bit of gastroenteritis.?? If patient worsens or does not continue to improve she will return to the emergency department or see primary care provider. Orders: NS with potassium chloride 20 mEq/L 1,000 mL, Total Volume (mL): 1,000, 1,000 mL, Soln-IV, IV, 500 mL/hr, Start Date: 08/19/22 5:23:00 EDT, 77 kg, Populate Charting Weight From Order, 1.9, m2 Discharge Patient, 08/19/22 6:43:00 EDT, Home Independently, Constant Indicator Patient Education Nausea and Vomiting, Adult Follow Up With When Contact Information Follow up with primary care provider Within 1 to 2 weeks Additional Instructions: Medication Reconciliation Unchanged fluticasone nasal (fluticasone 50 mcg/inh nasal spray)1 Sprays Nasal (into the nose) every morning.Refills: 1. ?? LORazepam (LORazepam 0.5 mg oral tablet)1 tab Oral (given by mouth) 4 times a day as needed as needed for anxiety for 28 Days. Refills: 2. ?? meclizine (meclizine 25 mg oral tablet)1 tab Oral (given by mouth) 3 times a day as needed as needed for dizziness. Refills: 0. ?? methylPREDNISolone (Medrol 4 mg oral tablet)1 packets Oral (given by mouth) once. as directed on package labeling. Refills: 0. ?? sertraline (Zoloft 50 mg oral tablet)1 tab Oral (given by mouth) every day for 30 Days. CUCO. Refills: 2. Problem List/Past Medical History Ongoing Anxiety Cervical dystonia Depressive disorder Dizziness Essential tremor Generalized anxiety disorder Hyponatremia Hyponatremia Isolated cervical dystonia Medication management Mild depression Multinodular goiter Palpitations Syndrome of inappropriate vasopressin secretion Tremor Historical Depression, major, recurrent, moderate Moderate recurrent major depression Procedure/Surgical History ???Extraction of wisdom tooth???Due 04/2027 Medication Administration Given NS with potassium chloride 20 mEq/L, 1000 mL, IV !-Zofran, 4 mg, IV Push 0.9% NaCl bolus, 1 L, IV Bolus Ativan, 0.5 mg, IV Push Toradol, 15 mg, IV Push Allergies azithromycin sertraline??(Hyponatremia) Social History Alcohol Never, Alcohol use interferes with work or home: No. Drinks more than intended: No. Others hurt by drinking: No. Household alcohol concerns: No. Electronic Cigarette/Vaping Electronic Cigarette Use: Never. 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 Exercise Home/Environment Lives with Children, Spouse. Nutrition/Health Caffeine intake amount: occasional chocolate. Sleeping concerns: No. Other Psychosocial Sexual Other contraceptive use: Partner Vasectomy. Substance Use Never Tobacco Never tobacco user Tobacco Use:. Family History Alcohol abuse: Brother. Anxiety: Mother, Brother, Grandfather (M) and Grandmother (P). Asthma: Brother. Depression: Father. Hypercholesterolemia: Father and Brother. Hyperlipidemia: Father. Myocardial infarction: Brother. Obsessive compulsive disorder: Brother and Brother. Lab Results CBC and Differential?? LATEST RESULTS?? HISTORICAL RESULTS?? WBC?? 08/19/22 04:45?? 4.5 ??Low?? 08/03/22?? 6.9?? RBC?? 08/19/22 04:45?? 4.4?? 08/03/22?? 4.2?? Hgb?? 08/19/22 04:45?? 13.5?? 08/03/22?? 13.0?? Hct?? 08/19/22 04:45?? 40.1?? 08/03/22?? 39.4?? MCV?? 08/19/22 04:45?? 90.3?? 08/03/22?? 93.1?? MCH?? 08/19/22 04:45?? 30.4?? 08/03/22?? 30.7?? MCHC?? 08/19/22 04:45?? 33.7?? 08/03/22?? 33.0?? RDW-CV?? 08/19/22 04:45?? 12.1?? 08/03/22?? 12.4?? Platelets?? 08/19/22 04:45?? 233?? 08/03/22?? 241?? Neutro Auto?? 08/19/22 04:45?? 73.6?? 08/03/22?? 60.7?? Lymph Auto?? 08/19/22 04:45?? 20.2?? 08/03/22?? 31.5?? Grimes Auto?? 08/19/22 04:45?? 5.1?? 08/03/22?? 6.1?? Eos, Auto?? 08/19/22 04:45?? 0.7 ??Low?? 08/03/22?? 0.7 ??Low?? Basophil Auto?? 08/19/22 04:45?? 0.2?? 08/03/22?? 0.7?? Imm Gran Auto?? 08/19/22 04:45?? 0.2?? 08/03/22?? 0.3?? Neutro Absolute?? 08/19/22 04:45?? 3.3?? 08/03/22?? 4.2? Routine Chemistry?? LATEST RESULTS?? HISTORICAL RESULTS?? Sodium Level?? 08/19/22 04:45?? 137?? 08/03/22?? 136?? Potassium Level?? 08/19/22 04:45?? 3.2 ??Low?? 08/03/22?? 4.0?? Chloride Level?? 08/19/22 04:45?? 101?? 08/03/22?? 101?? CO2?? 08/19/22 04:45?? 27?? 08/03/22?? 29?? Alk Phos?? 08/19/22 04:45?? 58?? 06/25/22?? 52?? AST?? 08/19/22 04:45?? 20?? 06/25/22?? 17?? ALT?? 08/19/22 04:45?? 22?? 06/25/22?? 20?? BUN?? 08/19/22 04:45?? 10?? 08/03/22?? 17?? Glucose Level?? 08/19/22 04:45?? 118 ??High?? 08/03/22?? 97?? Creatinine Level?? 08/19/22 04:45?? 0.74?? 08/03/22?? 0.78?? eGFR AA?? 08/19/22 04:45?? 105?? 08/03/22?? 99?? eGFR Non-AA?? 08/19/22 04:45?? 105?? 08/03/22?? 99?? Calcium Level?? 08/19/22 04:45?? 8.1 ??Low?? 08/03/22?? 8.9?? Protein Total?? 08/19/22 04:45?? 7.4?? 06/25/22?? 7.9?? Albumin Level?? 08/19/22 04:45?? 3.6?? 06/25/22?? 4.1?? Bilirubin Total?? 08/19/22 04:45?? 0.4?? 06/25/22?? 0.4? Infectious Disease?? LATEST RESULTS?? Strep A -IDNOW?? 08/19/22 05:10?? Not Detected? Electronically Signed on 08/19/22 06:47 AM Martina Huerta MD Emergency department Discharge instructions * Martina Huerta MD: PERFORM Event Display: ED Discharge Information Authored Date: [id number] ANY CLEMENT :1980 Age:41 years Sex:Female Visit Date:08/19/2022 Primary Care Physician: Ese Leon PA-C Discharge Instructions We would like to thank you for allowing us to assist you with your healthcare needs. The following includes patient education materials and information regarding your injury/illness. Diagnosis from Today's Visit Vomiting Discharge Vitals Temperature??(Temporal Artery) 97.3 ??F (36.3 ??C) Heart Rate??(Peripheral) 87 Respiratory Rate?? 16 Blood Pressure?? 103/76?? Height?? 66.14 in (168.000 cm) Weight??(Estimated) 169.78 lb (77.00 kg) Allergies azithromycin sertraline??(Hyponatremia) What to Do Next Instructions from Your Care Team Later today you may try some sips of fluid if your stomach is feeling up to it.?? Wait until tomorrow to try solid foods. You Need to Schedule the Following Appointments Follow Up with??Follow up with primary care provider When:??Within 1 to 2 weeks Upcoming Scheduled Appointments Saturday 10:45 AM EDT ?? Saturday 2:00 PM EST ?? You were treated today on an emergency basis; it may be newell to contact your primary care provider to notify them of your visit today. You may have been referred to your regular doctor or a specialist, please follow up as instructed. If your condition worsens or you can't get in to see the doctor, contact the Emergency Department. Medications What How Much When Why Instructions Next Dose Unchanged fluticasone nasal (fluticasone 50 mcg/ inh nasal spray) 1 Sprays Nasal (into the nose) Every morning Eustachian tube dysfunction Unchanged LORazepam (LORazepam 0.5 mg oral tablet) 1 tab Oral (given by mouth) 4 times a day as needed for as needed for anxiety Severe anxiety with panic Duration: 28 Days Unchanged meclizine (meclizine 25 mg oral tablet) 1 tab Oral (given by mouth) 3 times a day as needed for as needed for dizziness Dizziness Unchanged methylPREDNISolone (Medrol 4 mg oral tablet) 1 packets Oral (given by mouth) Once Sinusitis as directed on package labeling ?? Unchanged sertraline (Zoloft 50 mg oral tablet) 1 tab Oral (given by mouth) Every day Mild recurrent major depression Severe anxiety with panic Generalized anxiety disorder Duration: 30 Days CUCO ?? Education Materials Nausea and Vomiting, Adult Nausea is the feeling that you have an upset stomach or that you are about to vomit. Vomiting is when stomach contents are thrown up and out of the mouth as a result of nausea. Vomiting can make you feel weak and cause you to become dehydrated. Dehydration can make you feel tired and thirsty, cause you to have a dry mouth, and decrease how often you urinate. Older adults and people with other diseases or a weak disease-fighting system (immune system) are at higher risk for dehydration. It is important to treat your nausea and vomiting as told by your health care provider. Follow these instructions at home: Watch your symptoms for any changes. Tell your health care provider about them. Follow these instructions to care for yourself at home. Eating and drinking ? Take an oral rehydration solution (ORS). This is a drink that is sold at pharmacies and retail stores. ? Drink clear fluids slowly and in small amounts as you are able. Clear fluids include water, ice chips, low-calorie sports drinks, and fruit juice that has water added (diluted fruit juice). ? Eat bland, yhpj-iy-obnffq foods in small amounts as you are able. These foods include bananas, applesauce, rice, lean meats, toast, and crackers. ? Avoid fluids that contain a lot of sugar or caffeine, such as energy drinks, sports drinks, and soda. ? Avoid alcohol. ? Avoid spicy or fatty foods. General instructions ? Take fzos-qru-jgqibxw and prescription medicines only as told by your health care provider. ? Drink enough fluid to keep your urine pale yellow. ? Wash your hands often using soap and water. If soap and water are not available, use hand automation qa analyst. ? Make sure that all people in your household wash their hands well and often. ? Rest at home while you recover. ? Watch your condition for any changes. ? Breathe slowly and deeply when you feel nauseated. ? Keep all follow-up visits as told by your health care provider. This is important. Contact a health care provider if: ? Your symptoms get worse. ? You have new symptoms. ? You have a fever. ? You cannot drink fluids without vomiting. ? Your nausea does not go away after 2 days. ? You feel light-headed or dizzy. ? You have a headache. ? You have muscle cramps. ? You have a rash. ? You have pain while urinating. Get help right away if: ? You have pain in your chest, neck, arm, or jaw. ? You feel extremely weak or you faint. ? You have persistent vomiting. ? You have vomit that is bright red or looks like black coffee grounds. ? You have bloody or black stools or stools that look like tar. ? You have a severe headache, a stiff neck, or both. ? You have severe pain, cramping, or bloating in your abdomen. ? You have difficulty breathing, or you are breathing very quickly. ? Your heart is beating very quickly. ? Your skin feels cold and clammy. ? You feel confused. ? You have signs of dehydration, such as: ? Dark urine, very little urine, or no urine. ? Cracked lips. ? Dry mouth. ? Sunken eyes. ? Sleepiness. ? Weakness. These symptoms may represent a serious problem that is an emergency. Do not wait to see if the symptoms will go away. Get medical help right away. Call your local emergency services (911 in the [place] Do not drive yourself to the hospital. Summary ? Nausea is the feeling that you have an upset stomach or that you are about to vomit. As nausea getsworse, it can lead to vomiting. Vomiting can make you feel weak and cause you to become dehydrated. ? Follow instructions from your health care provider about eating and drinking to prevent dehydration. ? Take baeh-aks-fwszxli and prescription medicines only as told by your health care provider. ? Contact your health care provider if your symptoms get worse, or you have new symptoms. ? Keep all follow-up visits as told by your health care provider. This is important. This information is not intended to replace advice given to you by your health care provider. Make sure you discuss any questions you have with your health care provider. Document Revised: 07/05/2021 Document Reviewed: 09/23/2018 [employer] Patient Education ?? 2021 [employer] Tests Performed Medications and Immunizations Administered Given NS with potassium chloride 20 mEq/L, 1000 mL, IV !-Zofran, 4 mg, IV Push 0.9% NaCl bolus, 1 L, IV Bolus Ativan, 0.5 mg, IV Push Toradol, 15 mg, IV Push Lab Test Name Test Result Date/Time WBC 4.5 x10^3/mcL 08/19/2022 04:45 EDT RBC 4.4 x10^6/mcL 08/19/2022 04:45 EDT Hgb 13.5 g/dL 08/19/2022 04:45 EDT Hct 40.1 % 08/19/2022 04:45 EDT MCV 90.3 08/19/2022 04:45 EDT MCH 30.4 pg 08/19/2022 04:45 EDT MCHC 33.7 g/dL 08/19/2022 04:45 EDT RDW-CV 12.1 % 08/19/2022 04:45 EDT Platelets 233 x10^3/mcL 08/19/2022 04:45 EDT Neutro Auto 73.6 % 08/19/2022 04:45 EDT Lymph Auto 20.2 % 08/19/2022 04:45 EDT Grimes Auto 5.1 % 08/19/2022 04:45 EDT Eos, Auto 0.7 % 08/19/2022 04:45 EDT Basophil Auto 0.2 % 08/19/2022 04:45 EDT Imm Gran Auto 0.2 % 08/19/2022 04:45 EDT Neutro Absolute 3.3 x10^3/mcL 08/19/2022 04:45 EDT Sodium Level 137 mmol/L 08/19/2022 04:45 EDT Potassium Level 3.2 mmol/L 08/19/2022 04:45 EDT Chloride Level 101 mmol/L 08/19/2022 04:45 EDT CO2 27 mmol/L 08/19/2022 04:45 EDT Alk Phos 58 unit/L 08/19/2022 04:45 EDT AST 20 unit/L 08/19/2022 04:45 EDT ALT 22 unit/L 08/19/2022 04:45 EDT BUN 10 mg/dL 08/19/2022 04:45 EDT Glucose Level 118 mg/dL 08/19/2022 04:45 EDT Creatinine Level 0.74 mg/dL 08/19/2022 04:45 EDT eGFR AA 105 08/19/2022 04:45 EDT eGFR Non-AA 105 08/19/2022 04:45 EDT Calcium Level 8.1 mg/dL 08/19/2022 04:45 EDT Protein Total 7.4 g/dL 08/19/2022 04:45 EDT Albumin Level 3.6 g/dL 08/19/2022 04:45 EDT Bilirubin Total 0.4 mg/dL 08/19/2022 04:45 EDT Strep A -IDNOW Not Detected 08/19/2022 05:10 EDT Patient/Head Stock Operator Signature Patient Name:ANY CLEMENT I have received this information and my questions have been answered. Patient/Head Stock Operator Name: Patient/Head Stock Operator Signature: Relationship to Patient: Witness Name/Signature: Date: Electronically Signed on: 08/19/2022 06:46 EDTSigned by:[facility] Emergency department Note * Jacqui Resendez: PERFORM Event Display: ED Notes Authored Date: [id number] Patient Care team information Care Team Personnel Name: Ese Leon PA-C Position: Physician Member Role: Primary Care Physician Address: Address: [address] Name: Janet Roberts Position: Nurse Member Role: ED Nurse Name: Martina Huerta MD Position: Physician Member Role: ED Physician Address: Address: [address] [place] [address] Care Team Related Persons Name: SR. FARIHA, CAROL Duran Name: AGUSTIN CLEMENT Address: Home [address] [facility] [id number]
--- OUTSIDE RECORDS SUMMARY | 2023-04-17 03:08 | XMS_ITS | Continuity of Care Document ---
Author Name Unknown Organization [facility] Address [address] [place] [address] Care Team Providers Care Ground Wirer Name Role Phone Ese Leon Primary Care Physician [facility] Date(s): 01/29/23 - 01/29/23 [facility] [address] [place] [address] Discharge Disposition: Home or Self Care Attending Physician: Gal Vela MD Admitting Physician: Gal Vela MD Referring Physician: Gal Vela MD Allergies, Adverse Reactions, Alerts Substance Reaction Severity Status azithromycin 1 Unknown Active sertraline 2 Hyponatremia Unknown Active 1Palpitation 2enviromental, hx hyponatremia with sertraline Assessment and Plan Future Appointments Immunizations Given and Recorded Vaccine Date Status Refusal Reason tetanus/diphth/pertuss (Tdap) adult/adol 08/31/22 Given tetanus/diphth/pertuss (Tdap) adult/adol 05/01/12 Recorded SARS-CoV-2 (COVID-19) mRNA-1273 vaccine 09/30/20 R ecorded SARS-CoV-2 (COVID-19) mRNA-1273 vaccine 09/06/20 R ecorded influenza virus vaccine, live 1 02/26/20 Recorded influenza virus vaccine, live 03/05/19 Recorded influenza virus vaccine, inactivated 03/06/12 Tom [...] Patient Declined Last Modified by Nakita Joya, Coppersmith Apprentice 03-16-2021, 08:31 4Result Comment: influenza, injectable, quadrivalent, preservative free Patient Declined Last Modified by Ese Leon, Coppersmith Apprentice 06-22-2021, 17:50 5Result Comment: COVID-19, mRNA, LNP-S, PF, 30 mcg/0.3 mL dose, radha-sucrose ([employer]) Patient Declined Last Modified by Ese Leon, Coppersmith Apprentice 06-22-2021, 17:50 Medications carbidopa-levodopa 25 mg-100 mg oral tablet 1 tab, Oral, TID, 0 Refill(s) Start Date: 10/19/22 Stop Date: 01/17/23 Status: Ordered cetirizine 10 mg oral tablet 10 mg = 1 tab, Oral, Daily, # 90 tab, 0 Refill(s), Pharmacy: [facility], 168, cm, 08/19/22 4:27:00 EDT, Height/Length Dosing, 77, kg, 08/19/22 4:27:00 EDT, Weight Dosing Start Date: 08/23/22 Status: Ordered fluticasone 50 mcg/inh nasal spray 1 sprays, Nasal, every morning, # 16 mL, 1 Refill(s), Pharmacy: [facility], 171, cm, 09/20/22 8:41:00 EDT, Height/Length Dosing, 77, kg, 09/20/22 8:41:00 EDT, Weight Dosing Start Date: 10/15/22 Status: Ordered LORazepam 0.5 mg oral tablet 0.5 mg = 1 tab, Oral, QID, # 112 tab, 2 Refill(s), Pharmacy: [facility], 171, cm, 09/20/22 8:41:00 EDT, Height/Length Dosing, 77, kg, 09/20/22 8:41:00 EDT, Weight Dosing Start Date: 12/04/22 Stop Date: 02/26/23 Status: Ordered meclizine 25 mg oral tablet 25 mg = 1 tab, Oral, Daily, # 30 tab, 0 Refill(s) Start Date: 08/23/22 Status: Ordered Zoloft 50 mg oral tablet 50 mg = 1 tab, Oral, Daily, CUCO, # 30 tab, 5 Refill(s), Pharmacy: [facility], 171, cm, 09/20/22 8:41:00 EDT, Height/Length Dosing, 77, kg, 09/20/22 8:41:00 EDT, Weight Dosing Start Date: 12/04/22 Stop Date: 06/02/23 Status: Ordered Problem List Condition Confirmation Course Effective Dates Status H ealth Status Informant Depressive disorder Confirmed 02/10/21 Active Dizziness Confirmed Active Essential tremor Confirmed 07/25/18 Active Generalized anxiety disorder Confirmed Active Hyponatremia Confirmed Active Hyponatremia Confirmed 02/10/21 Active Urinary frequency Confirmed Active 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 Mild depression Confirmed Active Multinodular goiter Confirmed 05/03/21 Active Palpitations Confirmed 09/06/20 Active Medication management Confirmed Active Pharyngitis Confirmed Active 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 Tremor Confirmed Active Procedures Procedure Date Related Diagnosis Body Site Status Due 04/2027 1, 2, 3 Compl eted Extraction of wisdom tooth Completed 1Due 04/2027 05/10/2022 Neg/Neg 2Due 05/10/2022 Neg/Neg Neg/Neg Results Laboratory List Name Date Strep A (ID NOW) 01/29/23 Most recent to oldest [Reference Range]: 1 Strep A -IDNOW [Not Detected] Not Detect ed (01/29/23 11:13 AM) Orders for Microbiology Reports Name Date Throat Culture 01/29/23 Microbiology Reports TEST:Throat Culture STATUS:Order in Progress BODY SITE: SOURCE:Throat COLLECTED DATE/TIME:01/29/23 11:13 AM PRELIMINARY REPORT Normal Sirisha at 24 hours Social History Social History Type Response Tobacco Never tobacco user T obacco Use:. Sex Female Patient Care team information Care Team Personnel Name: Ese Leon PA-C Position: Physician Member Role: Informed Provider Address: Address: [address] [address]- [place] Care Team Related Persons Name: FILILILIYANOAM PEREIRA Name: AGUSTIN CLEMENT Address: Home [address], [id number]
--- OUTSIDE RECORDS SUMMARY | 2023-04-17 03:08 | XMS_ITS | Continuity of Care Document ---
Author Name Unknown Organization [facility] Address [address] [place] [address] Care Team Providers Care Glass Engraver Name Role Phone Ese Leon Primary Care Physician [facility] [facility] 04/06/[facility] [address] [place] [address] Discharge Disposition: Home or Self Care Attending [...] Patient Declined Last Modified by Nakita Joya, Manager Recruiting 03-16-2021, 08:31 4Result Comment: influenza, injectable, quadrivalent, preservative free Patient Declined Last Modified by Ese Leon, Manager Recruiting 06-22-2021, 17:50 5Result Comment: COVID-19, mRNA, LNP-S, PF, 30 mcg/0.3 mL dose, radha-sucrose ([employer]) Patient Declined Last Modified by Ese Leon, Manager Recruiting 06-22-2021, 17:50 Medications fluticasone 50 mcg/inh nasal spray 1 sprays, Nasal, every morning, # 15.8 mL, 0 Refill(s), Pharmacy: [facility] #58, 167.64, cm,01/29/22 10:39:00 EDT, Height/Length Dosing, 74.84, kg, 01/29/22 10:39:00 EDT, Weight Dosing Start Date: 02/01/22 Status: Ordered LORazepam 0.5 mg oral tablet 0.5 mg = 1 tab, Oral, TID, PRN as needed for anxiety, # 90 tab, 2 Refill(s), Pharmacy: [facility] #58, 167.64, cm, 01/29/22 10:39:00 EDT, Height/Length Dosing, 74.84, kg, 01/29/22 10:39:00 EDT,Weight Dosing Start Date: 03/13/22 Stop Date: 06/11/22 Status: Ordered meclizine 25 mg oral tablet 25 mg = 1 tab, Oral, TID, PRN as needed for dizziness, # 30 tab, 0 Refill(s), Pharmacy: [facility] #58, 167.64, cm, 01/29/22 10:39:00 EDT, Height/Length Dosing, 74.84, kg, 01/29/22 10:39:00 EDT, Weight Dosing Start Date: 01/29/22 Status: Ordered Zoloft 50 mg oral tablet 50 mg = 1 tab, Oral, Daily, CUCO, # 30 tab, 3 Refill(s), Pharmacy: [facility] #58, 167.64, cm,01/29/22 10:39:00 EDT, Height/Length Dosing, [...] PAP due 01/2023 1 Com pleted Neg/Neg Results Laboratory List Name Date CBC w/o Diff (Hemogram) 04/06/22 Comprehensive Metabolic Panel (CMP) 04/06 Most recent to oldest [Reference Range]: 1 WBC [5.0-10.0 x10^3/mcL] 7.3 x10^3/mcL (04/06/22 2:06 PM) RBC [4.1-5.3 x10^6/mcL] 4.3 x10^6/mcL (04/06/22 2:06 PM) BUN [7-18 mg/dL] 15 mg/dL (04/06/22 2:06 PM) Glucose Level [74-106 mg/dL] 97 mg/dL (04/06/22 2:06 PM) Potassium Level [3.5-5.1 mmol/L] 4.0 mmo l/L (04/06/22 2:06 PM) MCV [80.0-96.0] 93.2 (04/06/22 2:06 PM) AST [15-37 unit/L] 21 unit/L (04/06/22 2:06 PM) ALT [14-59 unit/L] 22 unit/L (04/06/22 2:06 PM) MCHC [31.0-35.0 g/dL] 33.0 g/dL (04/06/22 2:06 PM) Sodium Level [136-145 mmol/L] 136 mmol/L (04/06/22 2:06 PM) Hct [37.0-47.0 %] 40.0 % (04/06/22 2:06 PM) Calcium Level [8.5-10.1 mg/dL] 8.7 mg/dL (04/06/22 2:06 PM) Albumin Level [3.4-5.0 g/dL] 3.9 g/dL (04/06/22 2:06 PM) Protein Total [6.4-8.2 g/dL] 7.5 g/dL (04/06/22 2:06 PM) MCH [26.0-32.0 pg] 30.8 pg (04/06/22 2:06 PM) Bilirubin Total [0.2-1.0 mg/dL] 0.3 mg/d L (04/06/22 2:06 PM) Hgb [12.0-16.0 g/dL] 13.2 g/dL (04/06/22 2:06 PM) Alk Phos [46-146 unit/L] 55 unit/L (04/06/22 2:06 PM) Platelets [130-450 x10^3/mcL] 279 x10^3/ mcL (04/06/22 2:06 PM) CO2 [21-32 mmol/L] 30 mmol/L (04/06/22 2:06 PM) eGFR Non-AA [>=60] 99 (04/06/22 2:06 PM) eGFR AA [>=60] 99 (04/06/22 2:06 PM) Chloride Level [98-107 mmol/L] 100 mmol/ L (04/06/22 2:06 PM) RDW-CV [11.7-17.0 %] 12.1 % (04/06/22 2:06 PM) Creatinine Level [0.55-1.02 mg/dL] 0.78 mg/dL (04/06/22 2:06 PM) Social History Social History Type Response Tobacco Never tobacco user T obacco Use:. Sex Female Patient Care team information Personnel Name: Ese Leon PA-C Address: Address: [address] [address]- [place]
--- OUTSIDE RECORDS SUMMARY | 2023-04-17 03:08 | XMS_ITS | Continuity of Care Document ---
Author Name Unknown Organization [facility] Address [address] [place] [address] Care Team Providers Care Acrobatic Rigger Name Role Phone Ese Leon Primary Care Physician [facility]counter [facility] Date(s): 03/04/23 - 03/04/[address] [address] Discharge Disposition: Home or Self Care Attending [...] Patient Declined Last Modified by Nakita Joya, Wooden Boat Builder 03-16-2021, 08:31 4Result Comment: influenza, injectable, quadrivalent, preservative free Patient Declined Last Modified by Ese Leon, Wooden Boat Builder 06-22-2021, 17:50 5Result Comment: COVID-19, mRNA, LNP-S, PF, 30 mcg/0.3 mL dose, radha-sucrose ([employer]) Patient Declined Last Modified by Ese Leon, Wooden Boat Builder 06-22-2021, 17:50 Medications carbidopa-levodopa 25 mg-100 mg oral tablet 1 tab, Oral, TID, 0 Refill(s) Start Date: 10/19/22 Stop Date: 01/17/23 Status: Ordered cetirizine 10 mg oral tablet 10 mg = 1 tab, Oral, Daily, # 90 tab, 0 Refill(s), Pharmacy: [facility] #58, 168, cm, 08/19/22 4:27:00 EDT, Height/Length Dosing, 77, kg, 08/19/22 4:27:00 EDT, Weight Dosing Start Date: 08/23/22 Status: Ordered fluticasone 50 mcg/inh nasal spray 1 sprays, Nasal, every morning, # 16 mL, 1 Refill(s), Pharmacy: [facility] #58, 171, cm, 09/20/22 8:41:00 EDT, Height/Length Dosing, 77, kg, 09/20/22 8:41:00 EDT, Weight Dosing Start Date: 10/15/22 Status: Ordered ibuprofen 800 mg oral tablet 800 mg = 1 tab, Oral, every 8 hr, # 30 tab, 0 Refill(s), Pharmacy: [facility] #58, 171, cm, 09/20/22 8:41:00 EDT, Height/Length Dosing, 78.5, kg, 03/04/23 14:29:00 EST, Weight Dosing Start Date: 03/04/23 Status: Ordered LORazepam 0.5 mg oral tablet 0.5 mg = 1 tab, Oral, QID, # 112 tab, 2 Refill(s), Pharmacy: [facility] #58, 171, cm, 09/20/22 8:41:00 EDT, Height/Length [...] CUCO, # 30 tab, 5 Refill(s), Pharmacy: [facility] #58, 171, cm, 09/20/22 8:41:00 EDT, Height/Length [...] for Microbiology Reports Name Date Throat Culture 03/04/23 Microbiology Reports TEST:Throat Culture STATUS:Order in Progress BODY SITE: SOURCE:Throat COLLECTED DATE/TIME:03/04/23 3:07 PM PRELIMINARY REPORT Normal Sirisha at 24 hours Social History Social History Type Response Tobacco Never tobacco user T obacco Use:. Sex Female Patient Care team information Care Team Personnel Name: Ese Leon PA-C Position: Physician Member Role: Informed Provider Address: Address: [place] [address]- Care Team Related Persons Name: NOAM PEREZ Name: AGUSTIN CLEMENT Address: Home [address] [facility] [phone]
--- OUTSIDE RECORDS SUMMARY | 2023-04-17 03:08 | XMS_ITS | Continuity of Care Document ---
Author Name Unknown Organization [facility] Address [address] [place] [address] Care Team Providers Care Boatbuilder Wood Name Role Phone Ese Leon Primary Care Physician [phone] [facility] Date(s): 02/15/22 - 02/15/[address] [address] Discharge Disposition: Home or Self Care Attending [...] Patient Declined Last Modified by Nakita Joya, Water Supervisor 03-16-2021, 08:31 4Result Comment: influenza, injectable, quadrivalent, preservative free Patient Declined Last Modified by Ese Leon, Water Supervisor 06-22-2021, 17:50 5Result Comment: COVID-19, mRNA, LNP-S, PF, 30 mcg/0.3 mL dose, radha-sucrose ([employer]) Patient Declined Last Modified by Ese Leon, Water Supervisor 06-22-2021, 17:50 Medications fluticasone 50 mcg/inh nasal spray 1 sprays, Nasal, every morning, # 15.8 mL, 0 Refill(s), Pharmacy: [facility] #58, 167.64, cm,01/29/22 10:39:00 EDT, Height/Length Dosing, 74.84, kg, 01/29/22 10:39:00 EDT, Weight Dosing Start Date: 02/01/22 Status: Ordered LORazepam 0.5 mg oral tablet 0.5 mg = 1 tab, Oral, TID, PRN as needed for anxiety, # 90 tab, 2 Refill(s), Pharmacy: [facility] #[facility] Start Date: 12/12/21 Stop Date: 03/12/22 Status: Ordered meclizine 25 mg oral tablet 25 mg = 1 tab, Oral, TID, PRN as needed for dizziness, # 30 tab, 0 Refill(s), Pharmacy: [facility] #58, 167.64, cm, 01/29/22 10:39:00 EDT, Height/Length Dosing, 74.84, kg, 01/29/22 10:39:00 EDT, Weight Dosing Start Date: 01/29/22 Status: Ordered Zoloft 50 mg oral tablet 50 mg = 1 tab, Oral, Daily, CUCO, # 30 tab, 2 Refill(s), Pharmacy: [facility] Start Date: 12/12/21 Stop Date: 03/12/22 Status: Ordered Problem List Condition Confirmation Course Effective Dates Status H ealth Status Informant Generalized anxiety disorder Confirmed Active Hyponatremia Confirmed Active Palpitations Confirmed 09/06/20 Active 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 Tremor Confirmed Active Procedures Procedure Date Related Diagnosis Body Site Status Extraction of wisdom tooth Completed Results Laboratory List Name Date Basic Metabolic Panel (BMP) 02/15/22 Most recent to oldest [Reference Range]: 1 BUN [7-18 mg/dL] 18 mg/dL (02/15/22 1:47 PM) Glucose Level [74-106 mg/dL] 78 mg/dL (02/15/22 1:47 PM) Potassium Level [3.5-5.1 mmol/L] 4.1 mmo l/L (02/15/22 1:47 PM) Sodium Level [136-145 mmol/L] 139 mmol/L (02/15/22 1:47 PM) Calcium Level [8.5-10.1 mg/dL] 8.7 mg/dL (02/15/22 1:47 PM) CO2 [21-32 mmol/L] 28 mmol/L (02/15/22 1:47 PM) eGFR Non-AA [>=60] 111 (02/15/22 1:47 PM) eGFR AA [>=60] 111 (02/15/22 1:47 PM) Chloride Level [98-107 mmol/L] 104 mmol/ L (02/15/22 1:47 PM) Creatinine Level [0.55-1.02 mg/dL] 0.71 mg/dL (02/15/22 1:47 PM) Social History Social History Type Response Tobacco Never tobacco user T obacco Use:. Sex Female Patient Care team information Personnel Name: Ese Leon PA-C Address: Address: [address] [address]- [place]
--- OUTSIDE RECORDS SUMMARY | 2023-04-17 03:08 | XMS_ITS | Continuity of Care Document ---
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 Name Role Phone Ese Leon Primary Care Physician [phone] [facility] Date(s): 09/20/22 - 09/20/22 [facility] [address] [place] [address] Encounter Diagnosis Dizziness of unknown cause(Discharge Diagnosis) - 09/20/22 Dizziness and giddiness(Final) - Discharge Disposition: Home or Self Care Attending Physician: Leonardo Yates MD Admitting Physician: Leonardo Yates MD Allergies, Adverse Reactions, Alerts Substance Reaction Severity Status azithromycin 1 Unknown Active sertraline 2 Hyponatremia Unknown Active 1Palpitation 2enviromental, hx hyponatremia with sertraline Assessment and Plan Extracted from: Title:Clinical Document Author:Rosalee Lee te:09/20/22 Diagnosis: 1. Dizziness of u nknown cause Comment: Diagnosis: Dizziness Comment: Future Appointments Functional Status 09/20/22 Family Member Travel History No recent t [...] Patient Declined Last Modified by Nakita Joya, Technical Administrative Assistant 03-16-2021, 08:31 4Result Comment: influenza, injectable, quadrivalent, preservative free Patient Declined Last Modified by Ese Leon, Technical Administrative Assistant 06-22-2021, 17:50 5Result Comment: COVID-19, mRNA, LNP-S, PF, 30 mcg/0.3 mL dose, radha-sucrose ([employer]) Patient Declined Last Modified by Ese Leon, Technical Administrative Assistant 06-22-2021, 17:50 Medications cetirizine 10 mg oral tablet 10 mg = 1 tab, Oral, Daily, # 90 tab, 0 Refill(s), Pharmacy: [id number], 168, cm, 08/19/22 4:27:00 EDT, Height/Length Dosing, 77, kg, 08/19/22 4:27:00 EDT, Weight Dosing Start Date: 08/23/22 Status: Ordered fluticasone 50 mcg/inh nasal spray 1 sprays, Nasal, every morning, 0 Refill(s) Start Date: 08/23/22 Status: Ordered LORazepam 0.5 mg oral tablet 0.5 mg = 1 tab, Oral, QID, # 112 tab, 2 Refill(s), Pharmacy: [id number], 168, cm, 08/19/22 4:27:00 EDT, Height/Length Dosing, 77, kg, 08/19/22 4:27:00 EDT, Weight Dosing Start Date: 08/31/22 Stop Date: 11/23/22 Status: Ordered meclizine 25 mg oral tablet 25 mg = 1 tab, Oral, Daily, # 30 tab, 0 Refill(s) Start Date: 08/23/22 Status: Ordered penicillin V potassium 500 mg oral tablet 500 mg = 1 tab, Oral, BID, # 20 tab, 0 Refill(s), Pharmacy: [facility], 168, cm, 234:27:00 EDT, Height/Length Dosing, 77, kg, 08/19/22 4:27:00 EDT, Weight Dosing Start Date: 09/14/22 Stop Date: 09/24/22 Status: Ordered Zoloft 50 mg oral tablet 50 mg = 1 tab, Oral, Daily, CUCO, # 30 tab, 5 Refill(s), Pharmacy: [id number], 168, cm, 08/19/22 4:27:00 EDT, Height/Length Dosing, 77, kg, 08/19/22 4:27:00 EDT, Weight Dosing Start Date: 09/17/22 Stop Date: 03/16/23 Status: Ordered Zoloft 50 mg oral tablet 50 mg = 1 tab, Oral, Daily, # 30 tab, 0 Refill(s) Start Date: 08/31/22 Status: Ordered Mental Status 09/20/22 Eye Opening Response Sidney Spontaneous ly Best Verbal Response Iron Oriented Best Motor Response Iron Obeys comman ds Iron Coma Score 15 Problem List Condition Confirmation Course Effective Dates [...] Medication management Confirmed Active Pharyngitis Confirmed Active Strep throat Confirmed Active 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 Tremor Confirmed Active Procedures Procedure Date Related Diagnosis Body Site Status Due 04/2027 1, 2, 3 Compl eted Extraction of wisdom tooth Completed 1Due 04/2027 05/10/2022 Neg/Neg 2Due 05/10/2022 Neg/Neg Neg/Neg Results Laboratory List Name Date CBC w/ Diff 09/20/22 Comprehensive Metabolic Panel 09/20/22 Thyroid Stimulating Hormone (TSH) 3 Troponin-I 09/20/22 Automated Diff 09/20/22 Glucose POCT 09/20/22 Most recent to oldest [Reference Range]: 1 WBC [5.0-10.0 x10^3/mcL] 8.0 x10^3/mcL (09/20/22 8:52 AM) RBC [4.1-5.3 x10^6/mcL] 4.4 x10^6/mcL (09/20/22 8:52 AM) Neutro Auto [40.0-75.0 %] 76.5 % *HI* (09/20/22 8:52 AM) Lymph Auto [20.0-50.0 %] 17.5 % *LOW* (09/20/22 8:52 AM) Gentry Auto [2.0-15.0 %] 4.7 % (09/20/22 8:52 AM) Basophil Auto [0.0-1.0 %] 0.5 % (09/20/22 8:52 AM) BUN [7-18 mg/dL] 7 mg/dL (09/20/22 8:52 AM) Glucose POC [74-106 mg/dL] 105 mg/dL (09/20/22 8:34 AM) Glucose Level [74-106 mg/dL] 153 mg/dL *HI* (09/20/22 8:52 AM) Potassium Level [3.5-5.1 mmol/L] 3.6 mmo l/L (09/20/22 8:52 AM) MCV [80.0-96.0 fL] 92.3 fL (09/20/22 8:52 AM) AST [15-37 unit/L] 18 unit/L (09/20/22 8:52 AM) ALT [14-59 unit/L] 24 unit/L (09/20/22 8:52 AM) MCHC [31.0-35.0 g/dL] 33.7 g/dL (09/20/22 8:52 AM) Troponin-I [0.0-51.4 pg/mL] <5.0 pg/mL (09/20/22 8:52 AM) Sodium Level [136-145 mmol/L] 131 mmol/L *LOW* (09/20/22 8:52 AM) Hct [37.0-47.0 %] 40.9 % (09/20/22 8:52 AM) Calcium Level [8.5-10.1 mg/dL] 8.9 mg/dL (09/20/22 8:52 AM) Albumin Level [3.4-5.0 g/dL] 3.8 g/dL (09/20/22 8:52 AM) Protein Total [6.4-8.2 g/dL] 7.5 g/dL (09/20/22 8:52 AM) MCH [26.0-32.0 pg] 31.2 pg (09/20/22 8:52 AM) Neutro Absolute 6.1 x10^3/mcL *NA* (09/20/22 8:52 AM) Bilirubin Total [0.2-1.0 mg/dL] 0.4 mg/d L (09/20/22 8:52 AM) Hgb [12.0-16.0 g/dL] 13.8 g/dL (09/20/22 8:52 AM) Alk Phos [46-146 unit/L] 58 unit/L (09/20/22 8:52 AM) Platelets [130-450 x10^3/mcL] 276 x10^3/ mcL (09/20/22 8:52 AM) CO2 [21-32 mmol/L] 28 mmol/L (09/20/22 8:52 AM) TSH [0.358-3.740 mcIntlUnit/mL] 0.615 mc IntlUnit/mL (09/20/22 8:52 AM) eGFR Non-AA [>=60] 112 (09/20/22 8:52 AM) eGFR AA [>=60] 112 (09/20/22 8:52 AM) Chloride Level [98-107 mmol/L] 96 mmol/L *LOW* (09/20/22 8:52 AM) RDW-CV [11.5-14.5 %] 12.4 % (09/20/22 8:52 AM) Imm Gran Auto [0.0-0.9 %] 0.3 % (09/20/22 8:52 AM) Creatinine Level [0.55-1.02 mg/dL] 0.70 mg/dL (09/20/22 8:52 AM) Eos, Auto [1.0-6.0 %] 0.5 % *LOW* (09/20/22 8:52 AM) Vital Signs Most recent to oldest [Reference Range]: 1 2 3 Temperature Temporal Artery [36-38 Deg C] 36.0 Deg C (09/20/22 8:29 AM) Peripheral Pulse Rate [60-100 bpm] 87 bpm (09/20/22 1:13 PM) 78 bpm (09/20/22 10:36 AM) 78 bpm (09/20/22 9:51 AM) Heart Rate Monitored [60-100 bpm] 86 bpm (09/20/22 1:13 PM) 80 bpm (09/20/22 10:36 AM) Respiratory Rate [12-24 br/min] 16 br/min (09/20/22 1:13 PM) 14 br/min (09/20/22 10:36 AM) 12 br/min (09/20/22 9:51 AM) Blood Pressure [90-140/60-90 mmHg] 117/71mmHg (09/20/22 1:13 PM) 118/73mmHg (09/20/22 10:36 AM) 110/74mmHg (09/20/22 9:51 AM) Weight Dosing 77.00 kg (09/20/22 8:41 AM) Weight Estimated 77.00 kg (09/20/22 8:29 AM) Height/Length Dosing 171.000 cm (09/20/22 8:41 AM) Height/Length Estimated 171.000 cm (09/20/22 8:29 AM) Social History Social History Type Response Tobacco Never tobacco user T obacco Use:. Sex Female Hospital Discharge Instructions Patient Education 09/20/2022 11:30:03 Dizziness Dizziness Dizziness is a common problem. [...] is good. ??? If you need to setter machine one place for a long time, move [...] your dizziness for any changes. ??? Take ogbi-kwi-tlyhrrj and prescription medicines only as told by [...] provider. Document Revised: 03/20/2021 Document Reviewed: 03/20/2021 [employer] Patient Education ?? 2021 [employer] Follow Up Care 09/20/2022 08:29:55 With:Ese Leon PA-C Address: [address] [address]- When:2 to 4 days Comments:For chemistry re-check With:Neurology Address: When: Unknown Comments:Next week as scheduled Physician Emergency department Note * Leonardo Yates MD: PERFORM Event Display: ED Note Physician Authored Date: [id number] ANY CLEMENT :1980 Age:42 years Sex:Female Visit Date:09/20/2022 Primary Care Physician: Ese Leon PA-C Basic Information Time Seen: Leonardo Yates MD / 09/20/2022 08:30 Chief Complaint i'm more dizzy and confused than I normally am. I am on penicillin for strep. BGL 105 in triage. EKG obtained. A+OX4 on arrival. PT also c/o AVALOS History Of Present Illness: This is a 42-year-old lady??with a history documented as significant for but not limited to??tremor, goiter,??prior hyponatremia, generalized anxiety disorder,??dizziness??who presents today for evaluation of dizziness and some confusion this morning. ??Indicates symptoms ongoing for roughly 24 hours but she thinks worse this morning.?? Notably on chart review and by patient's description, was seen in the office??09/14 and started on penicillin??after positive rapid strep.?? Has been taking without??apparent difficulty although has had some loose stools.?? On chart review, has had intermittent dizziness??ongoing since at least January of last year.?? Concern outpatient for possible eustachian tube dysfunction??and patient does endorse some fullness and ringing in the left ear. ??She has been??referred to ENT but has not been seen yet.?? With regard to the confusion, she notes symptoms more??prominent this morning with some headache.?? She feels like she is having some difficulty??getting??words out. ??She has not had any other??numbness, tingling, weakness. ??She has had some generalized muscle aches and??tightness but no overt chest pain or trouble breathing. Review of Systems: Positive for dizziness, chest tightness, headache, subjective aphasia??and otherwise as noted in HPI Physical Exam Vitals & Measurements T:??36.0?C ??(Temporal Artery)?? HR:??87??(Peripheral)?? HR:??86??(Monitored)?? RR:??16?? BP:??117/71?? SpO2:??98%?? HT:??171.000??cm?? WT:??77.00??kg??(Estimated)?? O2 Therapy:??Room air?? Vital signs and nursing notes reviewed ?? CONSTITUTIONAL: _well appearing in no acute distress SKIN: _Warm, dry, and intact without rash EYES: _extraocular movements are intact??without pathologic nystagmus, clear conjunctiva HENT: _Normocephalic, atraumatic, moist mucus membranes NECK: _no obvious swelling, normal range of motion PULMONARY: _normal chest rise and fall, lungs are clear bilaterally with good air movement,??no respiratory distress or stridor CARDIOVASCULAR: _regular rate, regular rhythm,??distal extremities are warm and well perfused GASTROINTESTINAL: _nondistended GENITOURINARY: _deferred NEUROLOGIC: _?Cranial nerves 2-12 tested and intact, pupils??3 mm and reactive bilaterally, sensation to light touch intact in upper and lower extremities bilaterally in all dermatomes, no pronator drift, strength 5/5 in upper and lower extremities bilaterally, rapid alternating?? finger to nose normal, gait observed and normal heel to toe. ??Patient is noted to have??a fairly diffuse, symmetric tremor MUSCULOSKELETAL: _no gross deformities, atraumatic PSYCHIATRIC: _normal mood and affect ? Medical Decision Making: On arrival patient appears generally nontoxic, they are hemodynamically stable, afebrile,??no evidence of tachycardia or tachypnea. ??Tremor noted, fairly diffusely, documented in chart. ??Patient indicates??worse today however.?? Has had ongoing dizziness since at least January??although the confusion and subjective??aphasia??this morning appears to be new. ??No other neurologic symptoms??and NIH is essentially 0.?? As the confusion and??language trouble (although speech is clear??and easily??understood/appropriate on my evaluation)??would not necessarily be explained by??HEENT related problem, we will plan to recheck CT head, differential includes but not limited to??BPPV,??viral syndrome/vestibular neuritis,??cardiac ischemia versus dysrhythmia, electrolyte or metabolic derangement, other.?? Patient notes that she has not had much improvement in symptoms after??meclizine in the past,does take Ativan at home and has not taken dose this morning, will give 1 mg p.o.??while work-up inprogress ?? Further chart review indicates patient seen about a year or so ago with neurology at [facility], concern at that time for vestibular migraine??as etiology of dizziness and disequilibrium. Procedure No Qualifying Data Reexamination/Reevaluation Patient noted some improvement after Ativan. ??Labs reviewed???mild hyponatremia at 131 noted although not likely substantial enough to cause symptoms.?? Independent review of CT shows previously described meningioma but no other acute??process. ??Radiology report is in agreement. Given??dizziness coupled with her possible neurologic deficit and speech??difficulty,??will obtain MRI brain with and without contrast to further evaluate. MRI has resulted as??negative for acute pathology. ??Radiology comments??some??small white matter lesions that are favored to be??artifact rather than clinically significant.?? Reviewed above with patient who indicates that she actually has follow-up with neurology at [facility]??in the coming week.?? She notes that she is fairly sensitive to medications and??recently her Ativan prescription was filled by a??different bow maker machine tender. ??She did note some improvement with the Ativan given to her here in the emergency department.?? He??attempted to see if we could dispense 2 tablets for her doses later to day??however current policy is that??if pharmacies are open we are unable to do so.?? As she already has an active benzodiazepine prescription,??I asked her to reach out to her prescriber??to discusspossibly changing the prescription to dispense as written/name brand.?? She indicated she is comfortable with this plan. ??Images from MRI and CT pushed to [facility] to help facilitate follow-up.?? Strict return precautions to the emergency department verbalized understanding agreement ?? Medical Decision-Making: Clinical lab tests: ordered and reviewed -??Yes Tests in the radiology section of CPT??: ordered and reviewed -??Yes Tests in the medicine section of CPT??: ordered and reviewed -??Yes Review and summarize past medical records -??Yes Independent visualization of images, tracings, or specimens? Yes Assessment/Plan 1.??Dizziness of unknown cause??R42 Orders: Discharge Patient, 09/20/22 12:16:00 EDT, Home Independently, Constant Indicator Patient Education Dizziness Follow Up With When Contact Information Ese Leon PA-C Within 2 to [address] [address]- Additional Instructions: For chemistry re-check Neurology Additional Instructions: Next week as scheduled Medication Reconciliation Unchanged cetirizine (cetirizine 10 mg oral tablet)1 tab Oral (given by mouth) every day. Refills: 0. ?? fluticasone nasal (fluticasone 50 mcg/inh nasal spray)1 Sprays Nasal (into the nose) every morning. ?? LORazepam (LORazepam 0.5 mg oral tablet)1 tab Oral (given by mouth) 4 times a day for 28 Days. Refills: 2. ?? meclizine (meclizine 25 mg oral tablet)1 tab Oral (given by mouth) every day. ?? penicillin V potassium (penicillin V potassium 500 mg oral tablet)1 tab Oral (given by mouth) 2 times a day for 10 Days. Refills: 0. ?? sertraline (Zoloft 50 mg oral tablet)1 tab Oral (given by mouth) every day for 30 Days. CUCO. Refills: 5. ?? sertraline (Zoloft 50 mg oral tablet)1 tab Oral (given by mouth) every day. Problem List/Past Medical History Ongoing Anxiety Cervical dystonia Depressive disorder Dizziness Essential tremor Generalized anxiety disorder Hyponatremia Hyponatremia Isolated cervical dystonia Medication management Mild depression Multinodular goiter Palpitations Pharyngitis Strep throat Syndrome of inappropriate vasopressin secretion Tremor Historical Depression, major, recurrent, moderate Moderate recurrent major depression Procedure/Surgical History ???Extraction of wisdom tooth???Due 04/2027 Medication Administration Given LORazepam, 1 mg, Oral NS bolus, 1000 mL, IV Piggyback Allergies azithromycin sertraline??(Hyponatremia) Social History Alcohol Never, [...] Brother. Obsessive compulsive disorder: Brother and Brother. Diagnostic Results ECG Artifact somewhat limits interpretation however within these constraints,??sinus rhythm with a rateof 77, normal axis, MA is??appropriate, QRS is not widened at 110 ms, QTc is not prolonged at 418 ms,??no acute appearing ST/T-segment changes or evidence of acute regional ischemia or dysrhythmia. Lab Results CBC and Differential?? LATEST RESULTS?? HISTORICAL RESULTS?? WBC?? 09/20/22 08:52?? 8.0?? 08/19/22?? 4.5 ??Low?? RBC?? 09/20/22 08:52?? 4.4?? 08/19/22?? 4.4?? Hgb?? 09/20/22 08:52?? 13.8?? 08/19/22?? 13.5?? Hct?? 09/20/22 08:52?? 40.9?? 08/19/22?? 40.1?? MCV?? 09/20/22 08:52?? 92.3?? 08/19/22?? 90.3?? MCH?? 09/20/22 08:52?? 31.2?? 08/19/22?? 30.4?? MCHC?? 09/20/22 08:52?? 33.7?? 08/19/22?? 33.7?? RDW-CV?? 09/20/22 08:52?? 12.4?? 08/19/22?? 12.1?? Platelets?? 09/20/22 08:52?? 276?? 08/19/22?? 233?? Neutro Auto?? 09/20/22 08:52?? 76.5 ??High?? 08/19/22?? 73.6?? Lymph Auto?? 09/20/22 08:52?? 17.5 ??Low?? 08/19/22?? 20.2?? Gentry Auto?? 09/20/22 08:52?? 4.7?? 08/19/22?? 5.1?? Eos, Auto?? 09/20/22 08:52?? 0.5 ??Low?? 08/19/22?? 0.7 ??Low?? Basophil Auto?? 09/20/22 08:52?? 0.5?? 08/19/22?? 0.2?? Imm Gran Auto?? 09/20/22 08:52?? 0.3?? 08/19/22?? 0.2?? Neutro Absolute?? 09/20/22 08:52?? 6.1?? 08/19/22?? 3.3? Routine Chemistry?? LATEST RESULTS?? HISTORICAL RESULTS?? Sodium Level?? 09/20/22 08:52?? 131 ??Low?? 08/19/22?? 137?? Potassium Level?? 09/20/22 08:52?? 3.6?? 08/19/22?? 3.2 ??Low?? Chloride Level?? 09/20/22 08:52?? 96 ??Low?? 08/19/22?? 101?? CO2?? 09/20/22 08:52?? 28?? 08/19/22?? 27?? Alk Phos?? 09/20/22 08:52?? 58?? 08/19/22?? 58?? AST?? 09/20/22 08:52?? 18?? 08/19/22?? 20?? ALT?? 09/20/22 08:52?? 24?? 08/19/22?? 22?? BUN?? 09/20/22 08:52?? 7?? 08/19/22?? 10?? Glucose Level?? 09/20/22 08:52?? 153 ??High?? 08/19/22?? 118 ??High?? Creatinine Level?? 09/20/22 08:52?? 0.70?? 08/19/22?? 0.74?? eGFR AA?? 09/20/22 08:52?? 112?? 08/19/22?? 105?? eGFR Non-AA?? 09/20/22 08:52?? 112?? 08/19/22?? 105?? Calcium Level?? 09/20/22 08:52?? 8.9?? 08/19/22?? 8.1 ??Low?? Protein Total?? 09/20/22 08:52?? 7.5?? 08/19/22?? 7.4?? Albumin Level?? 09/20/22 08:52?? 3.8?? 08/19/22?? 3.6?? Bilirubin Total?? 09/20/22 08:52?? 0.4?? 08/19/22?? 0.4?? Glucose POC?? 09/20/22 08:34?? 105? Cardiac Isoenzymes?? LATEST RESULTS?? HISTORICAL RESULTS?? Troponin-I?? 09/20/22 08:52?? <5.0?? 01/29/22?? <5.0? Thyroid Studies?? LATEST RESULTS?? HISTORICAL RESULTS?? TSH?? 09/20/22 08:52?? 0.615?? 01/29/22?? 0.793? Electronically Signed on 09/20/22 04:03 PM Leonardo Yates MD Emergency department Discharge instructions * Leonardo Yates MD: PERFORM Event Display: ED Discharge Information Authored Date: [id number] ANY CLEMENT :1980 Age:42 years Sex:Female Visit Date:09/20/2022 Primary Care Physician: Ese Leon PA-C Discharge Instructions We would like to thank you for allowing us to assist you with your healthcare needs. The following includes patient education materials and information regarding your injury/illness. Diagnosis from Today's Visit Dizziness of unknown cause Discharge Vitals Temperature??(Temporal Artery) 96.8 ??F (36.0 ??C) Heart Rate??(Peripheral) 78 Heart Rate??(Monitored) 80 Respiratory Rate?? 14 Blood Pressure?? 118/73?? Height?? 67.32 in (171.000 cm) Weight??(Estimated) 169.78 lb (77.00 kg) Allergies azithromycin sertraline??(Hyponatremia) What to Do Next Instructions from Your Care Team Thank you for coming to the emergency department today, it has been a pleasure to take care of you.?? As we discussed, your labs were??generally reassuring. ??Your??sodium was slightly low at 131, wehave given you some??normal saline to help bring this up a little bit.?? People tend to be more symptomatic from sodium when he gets into the mid??120s. ??We would recommend having this rechecked??with your primary early next week??to ensure that??this is stable or hopefully improving.?? The MRI onyour brain??was overall reassuring. ??The radiologist saw a few white??matter lesions that they think are likely artifact. ??They did not see any new bleeding, stroke, or masses causing??your symptoms.?? We would recommend??keeping your follow-up appointment with neurology??next week??and we havesent the MRI and CT images over to neurology so they can review them at your appointment.?? Please return to the emergency department if you have any new or concerning symptoms including any??worsening symptoms, numbness, tingling, weakness, new vision changes,??chest pain or trouble breathing, fever, or any other symptoms that concern you. You Need to Schedule the Following Appointments Follow Up with??Ese Leon PA-C When:??Within 2 to 4 days Why: For chemistry re-check Where: [facility] [address] [address]- Follow Up with??Neurology Why: Next week as scheduled Upcoming Scheduled Appointments Saturday 10:15 AM EDT ?? Saturday 2:00 PM EST [...] Much When Why Instructions Next Dose Unchanged cetirizine (cetirizine 10 mg oral tablet) 1 tab Oral (given by mouth) Every day Seasonal allergic rhinitis Unchanged fluticasone nasal (fluticasone 50 mcg/ inh nasal spray) 1 Sprays Nasal (into the nose) Every morning Unchanged LORazepam (LORazepam 0.5 mg oral tablet) 1 tab Oral (given by mouth) 4 times a day Severe anxiety with panic Duration: 28 Days Unchanged meclizine (meclizine 25 mg oral tablet) 1 tab Oral (given by mouth) Every day Unchanged penicillin V potassium (penicillin V potassium 500 mg oral tablet) 1 tab Oral (given by mouth) 2 times a day Pharyngitis Strep throat Duration: 10 Days Unchanged sertraline (Zoloft 50 mg oral tablet) 1 tab Oral (given by mouth) Every day Major depressive disorder, recurrent episode, mild Severe anxiety with panic Generalized anxiety disorder Duration: 30 Days CUCO ?? Unchanged sertraline (Zoloft 50 mg oral tablet) 1 tab Oral (given by mouth) Every day Education Materials Dizziness Dizziness is a common problem. It [...] these instructions at home: Eating and drinking ? Drink enough fluid to keep your urine pale yellow. This helps to keep you from becoming dehydrated.Try to drink more clear fluids, such as water. ? Do not drink alcohol. ? Limit your caffeine intake if told to do so by your health care provider. Check ingredients and nutrition facts to see if a food or beverage contains caffeine. ? Limit your salt (sodium) intake if told to do so by your health care provider. Check ingredients and nutrition facts to see if a food or beverage contains sodium. Activity ? Avoid making quick movements. ? Rise slowly from chairs and steady yourself until you feel okay. ? In the morning, first sit up on the side of the bed. When you feel okay, stand slowly while you hold onto something until you know that your balance is good. ? If you need to setter machine one place for a long time, move your legs often. Tighten and relax the muscles in your legs while you are standing. ? Do not drive or use machinery if you feel dizzy. ? Avoid bending down if you feel dizzy. Place items in your home so that they are easy for you to reach without leaning over. Lifestyle ? Do not use any products that contain nicotine or tobacco. These products include cigarettes, chewing tobacco, and vaping devices, such as e-cigarettes. If you need help quitting, ask your health careprovider. ? Try to reduce your stress level by using methods such as yoga or meditation. Talk with your health care provider if you need help to manage your stress. General instructions ? Watch your dizziness for any changes. ? Take iwyd-keu-dkuiezl and prescription medicines only as told by your health care provider. Talk with your health care provider if you think that your dizziness is caused by a medicine that you are taking. ? Tell a friend or a family member that you are feeling dizzy. If he or she notices any changes in your behavior, have this person call your health care provider. ? Keep all follow-up visits. This is important. Contact a health care provider if: ? Your dizziness does not go away or you have new symptoms. ? Your dizziness or light-headedness gets worse. ? You feel nauseous. ? You have reduced hearing. ? You have a fever. ? You have neck pain or a stiff neck. ? Your dizziness leads to an injury or a fall. Get help right away if: ? You vomit or have diarrhea and are unable to eat or drink anything. ? You have problems talking, walking, swallowing, or using your arms, hands, or legs. ? You feel generally weak. ? You have any bleeding. ? You are not thinking clearly or you have trouble forming sentences. It may take a friend or family member to notice this. ? You have chest pain, abdominal pain, shortness of breath, or sweating. ? Your vision changes or you develop a severe headache. These symptoms may represent a serious problem that is an emergency. Do not wait to see if the symptoms will go away. Get medical help right away. Call your local emergency services (911 in the [place] Do not drive yourself to the hospital. Summary ? Dizziness is a feeling of unsteadiness or light-headedness. This condition can be caused by a number of things, including medicines, dehydration, or illness. ? Anyone can become dizzy, but dizziness is more common in older adults. ? Drink enough fluid to keep your urine pale yellow. Do not drink alcohol. ? Avoid making quick movements if you feel dizzy. Monitor your dizziness for any changes. This information is not intended to replace advice given to you by your health care provider. Make sure you discuss any questions you have with your health care provider. Document Revised: 03/20/2021 Document Reviewed: 03/20/2021 [employer] Patient Education ?? 2021 [employer] Tests Performed Medications and Immunizations Administered Given LORazepam, 1 mg, Oral NS bolus, 1000 mL, IV Piggyback Lab Test Name Test Result Date/Time WBC 8.0 x10^3/mcL 09/20/2022 08:52 EDT RBC 4.4 x10^6/mcL 09/20/2022 08:52 EDT Hgb 13.8 g/dL 09/20/2022 08:52 EDT Hct 40.9 % 09/20/2022 08:52 EDT MCV 92.3 fL 09/20/2022 08:52 EDT MCH 31.2 pg 09/20/2022 08:52 EDT MCHC 33.7 g/dL 09/20/2022 08:52 EDT RDW-CV 12.4 % 09/20/2022 08:52 EDT Platelets 276 x10^3/mcL 09/20/2022 08:52 EDT Neutro Auto 76.5 % 09/20/2022 08:52 EDT Lymph Auto 17.5 % 09/20/2022 08:52 EDT [place] Auto 4.7 % 09/20/2022 08:52 EDT Eos, Auto 0.5 % 09/20/2022 08:52 EDT Basophil Auto 0.5 % 09/20/2022 08:52 EDT Imm Gran Auto 0.3 % 09/20/2022 08:52 EDT Neutro Absolute 6.1 x10^3/mcL 09/20/2022 08:52 EDT Sodium Level 131 mmol/L 09/20/2022 08:52 EDT Potassium Level 3.6 mmol/L 09/20/2022 08:52 EDT Chloride Level 96 mmol/L 09/20/2022 08:52 EDT CO2 28 mmol/L 09/20/2022 08:52 EDT Alk Phos 58 unit/L 09/20/2022 08:52 EDT AST 18 unit/L 09/20/2022 08:52 EDT ALT 24 unit/L 09/20/2022 08:52 EDT BUN 7 mg/dL 09/20/2022 08:52 EDT Glucose Level 153 mg/dL 09/20/2022 08:52 EDT Creatinine Level 0.70 mg/dL 09/20/2022 08:52 EDT eGFR AA 112 09/20/2022 08:52 EDT eGFR Non-AA 112 09/20/2022 08:52 EDT Calcium Level 8.9 mg/dL 09/20/2022 08:52 EDT Protein Total 7.5 g/dL 09/20/2022 08:52 EDT Albumin Level 3.8 g/dL 09/20/2022 08:52 EDT Bilirubin Total 0.4 mg/dL 09/20/2022 08:52 EDT Glucose POC 105 mg/dL 09/20/2022 08:34 EDT Troponin-I <5.0 pg/mL 09/20/2022 08:52 EDT TSH 0.615 mcIntlUnit/mL 09/20/2022 08:52 EDT Patient/Cutting Machine Offbearer Signature Patient Name:ANY CLEMENT I have received this information and my questions have been answered. Patient/Cutting Machine Offbearer Name: Patient/Cutting Machine Offbearer Signature: Relationship to Patient: Witness Name/Signature: Date: Electronically Signed on: 09/20/2022 12:37 EDTSigned by:WA Discharge summary * Rosalee Lee: PERFORM Event Display: Discharge Note Authored Date: * Rosalee Lee: PERFORM Event Display: Discharge Note Authored Date: Diagnosis: 1. Dizziness of unknown cause Comment: Diagnosis: Dizziness Comment: Electronically Signed on 09/20/22 01:20 PM Rosalee Lee Patient Care team information Care Team Personnel Name: Edward, Ese A PA-C Position: Physician Member Role: Informed Provider Address: Address: [address] [address] Name: Evin Mathew RN Position: Nurse Member Role: ED Nurse Name: Monica Sanchez Position: Nurse Member Role: ED Nurse Name: Leonardo Yates MD Position: Physician Member Role: Admitting Physician Address: Address: [address] [place] [address] [address] [place] [address] Care Team Related Persons Name: NOAM PEREZ Name: NOAM FRIED Address: [facility] [address] [facility], [id number] Address: Home [address] [facility], [place] [id number] Name: SR. FARIHA, CAROL Duran Name: AGUSTIN CLEMENT Address: Home [address] [facility] [id number]
--- OUTSIDE RECORDS SUMMARY | 2023-04-17 03:08 | XMS_ITS | Continuity of Care Document ---
Author Name Unknown Organization [facility] Address [address] [place] [address] Care Team Providers Care Auto Tire Recapper Name Role Phone Ese Leon Primary Care Physician [facility] Date[facility]s): 12/26/22 - 12/26/22 [facility] [address] [place] [address] Discharge Disposition: Home or Self Care Attending Physician: Isabella Benítez Admitting Physician: Isabella Benítez Referring Physician: Isabella Benítez Allergies, Adverse Reactions, Alerts Substance Reaction Severity Status azithromycin 1 Unknown Active sertraline 2 Hyponatremia Unknown Active 1Palpitation 2enviromental, hx hyponatremia with sertraline Assessment and Plan Future Appointments Diagnostic Tests Pending * Throat Culture 12/26/22 Immunizations Given and Recorded Vaccine Date Status [...] Patient Declined Last Modified by Nakita Joya, Distance Education Director 03-16-2021, 08:31 4Result Comment: influenza, injectable, quadrivalent, preservative free Patient Declined Last Modified by Ese Leon, Distance Education Director 06-22-2021, 17:50 5Result Comment: COVID-19, mRNA, LNP-S, PF, 30 mcg/0.3 mL dose, radha-sucrose ([employer]) Patient Declined Last Modified by Ese Leon, Distance Education Director 06-22-2021, 17:50 Medications carbidopa-levodopa 25 mg-100 mg oral tablet 1 tab, Oral, TID, 0 Refill(s) Start Date: 10/19/22 Stop Date: 01/17/23 Status: Ordered cetirizine 10 mg oral tablet 10 mg = 1 tab, Oral, Daily, # 90 tab, 0 Refill(s), Pharmacy: [facility] #58, 168, cm, 08/19/22 4:27:00 EDT, Height/Length Dosing, 77, kg, 08/19/22 4:27:00 EDT, Weight Dosing Start Date: 08/23/22 Status: Ordered fluticasone 50 mcg/inh nasal spray 1 sprays, Nasal, every morning, # 16 mL, 1 Refill(s), Pharmacy: [facility] #58, 171, cm, 09/20/22 8:41:00 EDT, Height/Length Dosing, 77, kg, 09/20/22 8:41:00 EDT, Weight Dosing Start Date: 10/15/22 Status: Ordered LORazepam 0.5 mg oral tablet 0.5 mg = 1 tab, Oral, QID, # 112 tab, 2 Refill(s), Pharmacy: [facility] #58, 171, cm, 09/20/22 8:41:00 EDT, Height/Length [...] CUCO, # 30 tab, 5 Refill(s), Pharmacy: [facility] #58, 171, cm, 09/20/22 8:41:00 EDT, Height/Length [...] Results Orders for Microbiology Reports Name Date Urine Culture 12/26/22 Microbiology Reports TEST:Urine Culture STATUS:Order in Progress BODY SITE: SOURCE:Urine, Clean Catch COLLECTED DATE/TIME:12/26/22 8:39 PM PRELIMINARY REPORT Too young to evaluate, reincubate. Social History Social History Type Response Tobacco Never tobacco user T obacco Use:. Sex Female Patient Care team information Care Team Personnel Name: Ese Leon PA-C Position: Physician Member Role: Informed Provider Address: Address: [address] [address] [place] Care Team Related Persons Name: NOAM PEREZ Name: NOAM FRIED Address: [facility] [address] [facility], [id number] Address: Home [address] [facility], [place] [id number] Address: Mailing [address] [facility], [place] [id number] Name: SR. FRIED JAMES K. Name: SR. FRIED JAMES K. Name: SR. FRIED JAMES K. Name: AGUSTIN CLEMENT Address: Home [address] [place], [id number]
--- OUTSIDE RECORDS SUMMARY | 2023-04-17 03:08 | XMS_ITS | Continuity of Care Document ---
Author Name Unknown Organization [facility] Address [address] [place] [address] Care Team Providers Care Personnel Director Name Role Phone Ese Leon Primary Care Physician [place]counter [facility] Date(s): 01/04/23 - 01/04/[address] [address] Encounter Diagnosis Rib pain(Discharge Diagnosis) - 01/04/23 Discharge Disposition: Home or Self Care Attending Physician: Ese Leon PA-C Admitting Physician: Ese Leon PA-C Referring Physician: Ees Leon PA-C Allergies, Adverse Reactions, Alerts Substance [...] Patient Declined Last Modified by Nakita Joya, Coordinator Skill Training Program 03-16-2021, 08:31 4Result Comment: influenza, injectable, quadrivalent, preservative free Patient Declined Last Modified by Ese Leon, Coordinator Skill Training Program 06-22-2021, 17:50 5Result Comment: COVID-19, mRNA, LNP-S, PF, 30 mcg/0.3 mL dose, radha-sucrose ([employer]) Patient Declined Last Modified by Ese Leon, Coordinator Skill Training Program 06-22-2021, 17:50 Medications carbidopa-levodopa 25 mg-100 mg oral tablet 1 tab, Oral, TID, 0 Refill(s) Start Date: 10/19/22 Stop Date: 01/17/23 Status: Ordered cetirizine 10 mg oral tablet 10 mg = 1 tab, Oral, Daily, # 90 tab, 0 Refill(s), Pharmacy: [facility] #58, 168, cm, 08/19/22 4:27:00 EDT, Height/Length Dosing, 77, kg, 08/19/22 4:27:00 EDT, Weight Dosing Start Date: 08/23/22 Status: Ordered fluticasone 50 mcg/inh nasal spray 1 sprays, Nasal, every morning, # 16 mL, 1 Refill(s), Pharmacy: [facility] #58, 171, cm, 09/20/22 8:41:00 EDT, Height/Length Dosing, 77, kg, 09/20/22 8:41:00 EDT, Weight Dosing Start Date: 10/15/22 Status: Ordered LORazepam 0.5 mg oral tablet 0.5 mg = 1 tab, Oral, QID, # 112 tab, 2 Refill(s), Pharmacy: [facility] #58, 171, cm, 09/20/22 8:41:00 EDT, Height/Length [...] CUCO, # 30 tab, 5 Refill(s), Pharmacy: [facility] #58, 171, cm, 09/20/22 8:41:00 EDT, Height/Length [...] Laboratory List Name Date CBC w/ Diff 01/04/23 Comprehensive Metabolic Panel (CMP) Automated Diff 01/04/23 Most recent to oldest [Reference Range]: 1 WBC [5.0-10.0 x10^3/mcL] 5.9 x10^3/mcL (01/04/23 12:55 PM) RBC [4.1-5.3 x10^6/mcL] 4.5 x10^6/mcL (01/04/23 12:55 PM) Neutro Auto [40.0-75.0 %] 55.1 % (01/04/23 12:55 PM) Lymph Auto [20.0-50.0 %] 37.5 % (01/04/23 12:55 PM) [place] Auto [2.0-15.0 %] 5.6 % (01/04/23 12:55 PM) Basophil Auto [0.0-1.0 %] 0.7 % (01/04/23 12:55 PM) BUN [7-18 mg/dL] 13 mg/dL (01/04/23 12:55 PM) Glucose Level [74-106 mg/dL] 90 mg/dL (01/04/23 12: PM) Potassium Level [3.5-5.1 mmol/L] 3.8 mmo l/L (01/04/23 12:55 PM) MCV [80.0-96.0 fL] 92.2 fL (01/04/23 12: PM) AST [15-37 unit/L] 19 unit/L (01/04/23 12:55 PM) ALT [14-59 unit/L] 26 unit/L (01/04/23 12:55 PM) MCHC [31.0-35.0 g/dL] 33.2 g/dL (01/04/23 12:55 PM) Sodium Level [136-145 mmol/L] 136 mmol/L (01/04/23 12:55 PM) Hct [37.0-47.0 %] 41.6 % (01/04/23 12:55 PM) Calcium Level [8.5-10.1 mg/dL] 9.0 mg/dL (01/04/23 12:55 PM) Albumin Level [3.4-5.0 g/dL] 4.0 g/dL (01/04/23 12:55 PM) Protein Total [6.4-8.2 g/dL] 7.9 g/dL (01/04/23 12:55 PM) MCH [26.0-32.0 pg] 30.6 pg (01/04/23 12:55 PM) Neutro Absolute 3.2 x10^3/mcL *NA* (01/04/23 12:55 PM) Bilirubin Total [0.2-1.0 mg/dL] 0.3 mg/d L (01/04/23 12:55 PM) Hgb [12.0-16.0 g/dL] 13.8 g/dL (01/04/23 12:55 PM) Alk Phos [46-146 unit/L] 57 unit/L (01/04/23 12:55 PM) Platelets [130-450 x10^3/mcL] 292 x10^3/ mcL (01/04/23 12:55 PM) CO2 [21-32 mmol/L] 30 mmol/L (01/04/23 12:55 PM) eGFR Non-AA [>=60] 113 (01/04/23 12:55 PM) eGFR AA [>=60] 113 (01/04/23 12:55 PM) Chloride Level [98-107 mmol/L] 99 mmol/L (01/04/23 12:55 PM) RDW-CV [11.5-14.5 %] 12.2 % (01/04/23 12:55 PM) Imm Gran Auto [0.0-0.9 %] 0.3 % (01/04/23 12:55 PM) Slide Review Not Indicated (01/04/23 12:55 PM) Creatinine Level [0.55-1.02 mg/dL] 0.68 mg/dL (01/04/23 12:55 PM) Eos, Auto [1.0-6.0 %] 0.8 % *LOW* (01/04/23 12:55 PM) Social History Social History Type Response Tobacco Never tobacco user T obacco Use:. Sex Female Patient Care team information Care Team Personnel Name: Ese Leon PA-C Position: Physician Member Role: Informed Provider Address: Address: [address] Care Team Related Persons Name: NOAM PEREZ Name: CAROL FRIED Name: NOAM FRIED Address: Alternate [address] [facility] [id number] Address: Home [address] [place], [place] [id number] Address: Mailing [address] [place], [place] [phone] Name: SR. FARIHA, CAROL Duran Name: AGUSTIN CLEMENT Address: [address] [facility] [id number]
--- OUTSIDE RECORDS SUMMARY | 2023-04-17 03:08 | XMS_ITS | Continuity of Care Document ---
Author Name Unknown Organization [facility] Address [address] [place] [address] Care Team Providers Care Sanitation Worker Cleaning Equipment Name Role Phone Ese Leon Primary Care Physician Encounter [facility] Date(s): 10/11/22 - 10/11/[address] [address] Discharge Disposition: Home or Self Care Attending [...] Patient Declined Last Modified by Nakita Joya, Tamper Operator 03-16-2021, 08:31 4Result Comment: influenza, injectable, quadrivalent, preservative free Patient Declined Last Modified by Ese Leon, Tamper Operator 06-22-2021, 17:50 5Result Comment: COVID-19, mRNA, LNP-S, PF, 30 mcg/0.3 mL dose, radha-sucrose ([employer]) Patient Declined Last Modified by Ese Leon, Tamper Operator 06-22-2021, 17:50 Medications cetirizine 10 mg oral tablet 10 mg = 1 tab, Oral, Daily, # 90 tab, 0 Refill(s), Pharmacy: [facility] #58, 168, cm, 08/19/22 4:27:00 EDT, Height/Length Dosing, 77, kg, 08/19/22 4:27:00 EDT, Weight Dosing Start Date: 08/23/22 Status: Ordered fluticasone 50 mcg/inh nasal spray 1 sprays, Nasal, every morning, 0 Refill(s) Start Date: 08/23/22 Status: Ordered LORazepam 0.5 mg oral tablet 0.5 mg = 1 tab, Oral, QID, # 112 tab, 2 Refill(s), Pharmacy: [facility] #58, 168, cm, 08/19/22 4:27:00 EDT, Height/Length [...] BID, # 20 tab, 0 Refill(s), Pharmacy: [facility] #58, 168, cm, 234:27:00 EDT, Height/Length Dosing, 77, kg, 08/19/22 4:27:00 EDT, Weight Dosing Start Date: 09/14/22 Stop Date: 09/24/22 Status: Ordered Zoloft 50 mg oral tablet 50 mg = 1 tab, Oral, Daily, CUCO, # 30 tab, 5 Refill(s), Pharmacy: [facility] #58, 168, cm, 08/19/22 4:27:00 EDT, Height/Length Dosing, 77, kg, 08/19/22 4:27:00 EDT, Weight Dosing Start Date: 09/17/22 Stop Date: 03/16/23 Status: Ordered Zoloft 50 mg oral tablet 50 mg = 1 tab, Oral, Daily, # 30 tab, 0 Refill(s) Start Date: 08/31/22 Status: Ordered Problem List Condition Confirmation Course [...] List Name Date Strep A (ID NOW) 10/11/22 Basic Metabolic Panel (BMP) 10/11/22 Most recent to oldest [Reference Range]: 1 BUN [7-18 mg/dL] 12 mg/dL (10/11/22 11:36 AM) Glucose Level [74-106 mg/dL] 123 mg/dL *HI* (10/11/22 11:36 AM) Potassium Level [3.5-5.1 mmol/L] 4.1 mmo l/L (10/11/22 11:36 AM) Sodium Level [136-145 mmol/L] 137 mmol/L (10/11/22 11:36 AM) Calcium Level [8.5-10.1 mg/dL] 8.9 mg/dL (10/11/22 11:36 AM) CO2 [21-32 mmol/L] 28 mmol/L (10/11/22 11:36 AM) eGFR Non-AA [>=60] 91 (10/11/22 11:36 AM) eGFR AA [>=60] 91 (10/11/22 11:36 AM) Chloride Level [98-107 mmol/L] 103 mmol/ L (10/11/22 11:36 AM) Strep A -IDNOW [Not Detected] Not Detect ed (10/11/22 11:40 AM) Creatinine Level [0.55-1.02 mg/dL] 0.83 mg/dL (10/11/22 11:36 AM) Social History Social History Type Response Tobacco Never tobacco user T obacco Use:. Sex Female Patient Care team information Care Team Personnel Name: Ese Leon PA-C Position: Physician Member Role: Informed Provider Address: Address: [id number] [place] [address] Care Team Related Persons Name: NOAM PEREZ Name: NOAM FRIED Address: Alternate [address] [facility], [id number] Address: Home [address] [facility], [place] [phone] Name: SR. FRIED JAMES K. Name: AGUSTIN CLEMENT Address: Home [address] [place] [address] [facility] [id number]
--- OUTSIDE RECORDS SUMMARY | 2023-04-17 03:08 | XMS_ITS | Continuity of Care Document ---
Author Name Unknown Organization [facility] Address [address] [place] [address] Care Team Providers Care Speeder Hand Name Role Phone Ese Leon Primary Care Physician [phone] [facility]counter [facility] Date(s): 05/10/22 - 05/10/[address] [address] Discharge Disposition: Home or Self Care Attending Physician: Derrell Ennis MD Admitting Physician: Derrell Ennis MD Referring Physician: Derrell Ennis MD Allergies, Adverse Reactions, Alerts Substance Reaction Severity Status azithromycin 1 Unknown Active sertraline 2 Hyponatremia Unknown Active 1Palpitation 2enviromental, hx hyponatremia with sertraline Assessment and Plan Future Appointments Diagnostic Tests Pending * PAP Test [facility] 05/10/22 Future Scheduled Tests Laboratory* Basic Metabolic Panel [...] Patient Declined Last Modified by Nakita Joya, Clay Artisan 03-16-2021, 08:31 4Result Comment: influenza, injectable, quadrivalent, preservative free Patient Declined Last Modified by Ese Leon, Clay Artisan 06-22-2021, 17:50 5Result Comment: COVID-19, mRNA, LNP-S, PF, 30 mcg/0.3 mL dose, radha-sucrose ([employer]) Patient Declined Last Modified by Ese Leon, Clay Artisan 06-22-2021, 17:50 Medications fluticasone 50 mcg/inh nasal spray 1 sprays, Nasal, every morning, # 15.8 mL, 0 Refill(s), Pharmacy: [facility] #58, 167.64, cm,01/29/22 10:39:00 EDT, Height/Length Dosing, 74.84, kg, 01/29/22 10:39:00 EDT, Weight Dosing Start Date: 02/01/22 Status: Ordered LORazepam 0.5 mg oral tablet 0.5 mg = 1 tab, Oral, TID, PRN as needed for anxiety, # 90 tab, 2 Refill(s), Pharmacy: [facility] #58, 167.64, cm, 01/29/22 10:39:00 EDT, Height/Length Dosing, 74.84, kg, 01/29/22 10:39:00 EDT,Weight Dosing Start Date: 03/13/22 Stop Date: 06/11/22 Status: Ordered LORazepam 0.5 mg oral tablet 0.5 mg = 1 tab, Oral, QID, PRN as needed for anxiety, # 112 tab, 1 Refill(s), Pharmacy: [facility] #58, 167.64, cm, 01/29/22 10:39:00 EDT, Height/Length Dosing, 74.84, kg, 01/29/22 10:39:00 EDT, Weight Dosing Start Date: 05/04/22 Stop Date: 06/29/22 Status: Ordered meclizine 25 mg oral tablet 25 mg = 1 tab, Oral, TID, PRN as needed for dizziness, # 30 tab, 0 Refill(s), Pharmacy: [facility] #58, 167.64, cm, 01/29/22 10:39:00 EDT, Height/Length Dosing, 74.84, kg, 01/29/22 10:39:00 EDT, Weight Dosing Start Date: 01/29/22 Status: Ordered Zoloft 50 mg oral tablet 50 mg = 1 tab, Oral, Daily, CUCO, # 30 tab, 3 Refill(s), Pharmacy: [facility] #58, 167.64, cm,01/29/22 10:39:00 EDT, Height/Length Dosing, [...] Personnel Name: Ese Leon PA-C Address: Address: [address]
--- OUTSIDE RECORDS SUMMARY | 2023-04-17 03:08 | XMS_ITS | Continuity of Care Document ---
Author Name Unknown Organization [facility] Address [address] [place] [address] Care Team Providers Care Transport Assistant Name Role Phone Ese Leon Primary Care Physician [id number] Date(s): 01/11/23 - 01/11/23 [facility] [address] [place] [address] Discharge Disposition: Home or Self Care Attending Physician: Marcela Coronel NP Admitting Physician: Marcela Coronel HAND STRAIGHTENER Allergies, Adverse Reactions, Alerts Substance Reaction Severity Status azithromycin 1 Unknown Active sertraline 2 Hyponatremia Unknown Active 1Palpitation 2enviromental, hx hyponatremia with sertraline Assessment and Plan Future Appointments Diagnostic Tests Pending * Group A Strep Culture 01/11/23 Immunizations Given and Recorded Vaccine Date Status [...] Status Refusal Reason influenza, unspecified formulation 2 8/9/22 Not Given Patient Refuses influenza, unspecified formulation [...] Patient Declined Last Modified by Nakita Joya, Slasher Machine Operator 03-16-2021, 08:31 4Result Comment: influenza, injectable, quadrivalent, preservative free Patient Declined Last Modified by Ese Leon, Slasher Machine Operator 06-22-2021, 17:50 5Result Comment: COVID-19, mRNA, LNP-S, PF, 30 mcg/0.3 mL dose, radha-sucrose ([employer]) Patient Declined Last Modified by Ese Leon, Slasher Machine Operator 06-22-2021, 17:50 Medications carbidopa-levodopa 25 mg-100 mg oral tablet 1 tab, Oral, TID, 0 Refill(s) Start Date: 10/19/22 Stop Date: 01/17/23 Status: Ordered cetirizine 10 mg oral tablet 10 mg = 1 tab, Oral, Daily, # 90 tab, 0 Refill(s), Pharmacy: [facility] #58, 168, cm, 08/19/22 4:27:00 EDT, Height/Length Dosing, 77, kg, 08/19/22 4:27:00 EDT, Weight Dosing Start Date: 08/23/22 Status: Ordered fluticasone 50 mcg/inh nasal spray 1 sprays, Nasal, every morning, # 16 mL, 1 Refill(s), Pharmacy: [facility] #58, 171, cm, 09/20/22 8:41:00 EDT, Height/Length Dosing, 77, kg, 09/20/22 8:41:00 EDT, Weight Dosing Start Date: 10/15/22 Status: Ordered LORazepam 0.5 mg oral tablet 0.5 mg = 1 tab, Oral, QID, # 112 tab, 2 Refill(s), Pharmacy: [facility] #58, 171, cm, 09/20/22 8:41:00 EDT, Height/Length [...] CUCO, # 30 tab, 5 Refill(s), Pharmacy: [facility] #58, 171, cm, 09/20/22 8:41:00 EDT, Height/Length [...] Neg/Neg Neg/Neg Results Laboratory List Name Date .Urinalysis POCT 01/11/23 Most recent to oldest [Reference Range]: 1 Method of Collect POC Clean Catch *NA* (01/11/23 2:18 PM) Specific [place], Ur POC 1.015 *NA* (01/11/23 2:18 PM) Specimen Color POC Pale Yellow *NA* (01/11/23 2:18 PM) Glucose, Urine POC [Negative] Negative (01/11/23 2:18 PM) Bilirubin, Urine POC [Negative] Negative (01/11/23 2:18 PM) Ketones, Urine POC [Negative] Negative (01/11/23 2:18 PM) Blood, Urine POC [Negative] Negative (01/11/23 2:18 PM) pH, Urine POC 6 *NA* (01/11/23 2:18 PM) Protein, Urine POC [Negative] Negative (01/11/23 2:18 PM) Urobilinogen, Urine POC Normal (01/11/23 2:18 PM) Nitrite, Urine POC [Negative] Negative (01/11/23 2:18 PM) Leuk Esterase, Urine POC [Negative] Nega tive (01/11/23 2:18 PM) Clarity, Urine POC [Clear] Clear (01/11/23 2:18 PM) Social History Social History Type Response Tobacco Never tobacco user T obacco Use:. Sex Female Patient Care team information Care Team Personnel Name: Ese Leon PA-C Position: Physician Member Role: Informed Provider Address: Address: [place] [address] Care Team Related Persons Name: NOAM PEREZ Name: CAROL FRIED Name: NOAM FRIED Address: [facility] [address] [facility], [id number] Address: Home [address] [facility] [id number] Address: Mailing [address] [place], [place] [id number] Name: SR. FRIED JAMES K. Name: SR. FRIED JAMES K. Name: AGUSTIN CLEMENT Address: Home [address] [facility] [id number]
--- OUTSIDE RECORDS SUMMARY | 2023-04-17 03:08 | XMS_ITS | Continuity of Care Document ---
Author Name Unknown Organization [facility] Address [address] [place] [address] Care Team Providers Care Import/Export Administrator Name Role Phone Ese Leon Primary Care Physician Encounter [facility] Date(s): 12/04/22 - 12/04/22 [facility] [address] [place] [address] Discharge Disposition: Home or Self Care Attending Physician: Kay Macedo DNP Admitting Physician: Kay Macedo DNP Referring Physician: Kay Macedo DNP Allergies, Adverse Reactions, Alerts Substance Reaction Severity Status azithromycin 1 Unknown Active sertraline 2 Hyponatremia Unknown Active 1Palpitation 2enviromental, hx hyponatremia with sertraline Assessment and Plan Future Appointments Diagnostic Tests Pending * Benzodiazepine Panel Confirmation, Urine CTOX 12/04/22 Immunizations Given and Recorded Vaccine Date Status [...] Patient Declined Last Modified by Nakita Joya, Chain Splitter 03-16-2021, 08:31 4Result Comment: influenza, injectable, quadrivalent, preservative free Patient Declined Last Modified by Ese Leon, Chain Splitter 06-22-2021, 17:50 5Result Comment: COVID-19, mRNA, LNP-S, PF, 30 mcg/0.3 mL dose, radha-sucrose ([employer]) Patient Declined Last Modified by Ese Leon, Chain Splitter 06-22-2021, 17:50 Medications carbidopa-levodopa 25 mg-100 mg oral tablet 1 tab, Oral, TID, 0 Refill(s) Start Date: 10/19/22 Stop Date: 01/17/23 Status: Ordered cetirizine 10 mg oral tablet 10 mg = 1 tab, Oral, Daily, # 90 tab, 0 Refill(s), Pharmacy: [facility], 168, cm, 08/19/22 4:27:00 EDT, Height/Length Dosing, 77, kg, 08/19/22 4:27:00 EDT, Weight Dosing Start Date: 08/23/22 Status: Ordered fluticasone 50 mcg/inh nasal spray 1 sprays, Nasal, every morning, # 16 mL, 1 Refill(s), Pharmacy: [facility], 171, cm, 09/20/22 8:41:00 EDT, Height/Length Dosing, 77, kg, 09/20/22 8:41:00 EDT, Weight Dosing Start Date: 10/15/22 Status: Ordered LORazepam 0.5 mg oral tablet 0.5 mg = 1 tab, Oral, QID, # 112 tab, 2 Refill(s), Pharmacy: [facility], 171, cm, 09/20/22 8:41:00 EDT, Height/Length [...] CUCO, # 30 tab, 5 Refill(s), Pharmacy: [facility], 171, cm, 09/20/22 8:41:00 EDT, Height/Length [...] Neg/Neg Neg/Neg Results Laboratory List Name Date Drug Screen Urine (Drug Screen Urine w/ Reflex) 12/04/22 Most recent to oldest [Reference Range]: 1 U Amph Scrn [Negative] Negative 1 (12/04/22 10:53 AM) U Benzodia Scrn [Negative] Positive *ABN* (12/04/22 10:53 AM) U Cocaine Scrn [Negative] Negative (12/04/22 10:53 AM) U Jaclyn Scrn [Negative] Negative (12/04/22 10:53 AM) U Opiate Scrn [Negative] Negative (12/04/22 10:53 AM) U Oxy Scrn [Negative] Negative (12/04/22 10:53 AM) U PCP Scrn [Negative] Negative (12/04/22 10:53 AM) U THC Scr [Negative] Negative (12/04/22 10:53 AM) U PPX Scr [Negative] Negative (12/04/22 10:53 AM) U Methadone Scr [Negative] Negative (12/04/22 10:53 AM) U Buprenorph Scr [Negative] Negative (12/04/22 10:53 AM) U mAMP Scr [Negative] Negative (12/04/22 10:53 AM) U TCA Scr [Negative] Negative (12/04/22 10:53 AM) 1Interpretive Data: These are unconfirmed screening results, to be used only for medical (i.e. treatment) purposes. These screening results must not be used for non-medical purposes (e.g. employment or legal testing). New method started 11/02/10 Test Name Reference Range (Cut-off) THC Neg (50 ng/mL) PCP Neg (25 ng/mL) JUANJO Neg (150 ng/mL) MET Neg (500 ng/mL OPI Neg (100 ng/mL) AMP Neg (500 ng/mL BZO Neg (150 ng/mL) TCA Neg (300 ng/mL) MTD Neg (200 ng/mL) BAR Neg (200 ng/mL) OXY Neg (100 ng/mL) PPX Neg (300 ng/mL) BUP Neg (10 ng/mL) Social History Social History Type Response Tobacco Never tobacco user T obacco Use:. Sex Female Patient Care team information Care Team Personnel Name: Ese Leon PA-C Position: Physician Member Role: Informed Provider Address: Address: [place] [address]- Care Team Related Persons Name: NOAM PEREZ Name: SR. FRIED JAMES K. Name: SR. FRIED JAMES K. Name: AGUSTIN CLEMENT Address: Home [address] [place], [id number]
--- OUTSIDE RECORDS SUMMARY | 2023-04-17 03:08 | XMS_ITS | Continuity of Care Document ---
Author Name Unknown Organization [facility] Address [address] [place] [address] Care Team Providers Care Community Engagement Manager Name Role Phone Ese Leon Primary Care Physician [facility] Date(s): 06/25/22 - 06/25/[address] [address] Discharge Disposition: Home or Self Care Attending [...] Patient Declined Last Modified by Nakita Joya, Trauma Doctor 03-16-2021, 08:31 4Result Comment: influenza, injectable, quadrivalent, preservative free Patient Declined Last Modified by Ese Leon, Trauma Doctor 06-22-2021, 17:50 5Result Comment: COVID-19, mRNA, LNP-S, PF, 30 mcg/0.3 mL dose, radha-sucrose ([employer]) Patient Declined Last Modified by Ese Leon, Trauma Doctor 06-22-2021, 17:50 Medications fluticasone 50 mcg/inh nasal spray 1 sprays, Nasal, every morning, # 15.8 mL, 1 Refill(s), Pharmacy: [facility], 167.64, cm,01/29/22 10:39:00 EDT, Height/Length Dosing, 74.84, kg, 01/29/22 10:39:00 EDT, Weight Dosing Start Date: 06/25/22 Status: Ordered LORazepam 0.5 mg oral tablet 0.5 mg = 1 tab, Oral, QID, PRN as needed for anxiety, # 112 tab, 2 Refill(s), Pharmacy: [facility], 167.64, cm, 01/29/22 10:39:00 EDT, Height/Length Dosing, 74.84, kg, 01/29/22 10:39:00 EDT, Weight Dosing Start Date: 06/08/22 Stop Date: 08/31/22 Status: Ordered meclizine 25 mg oral tablet 25 mg = 1 tab, Oral, TID, PRN as needed for dizziness, # 30 tab, 0 Refill(s), Pharmacy: [facility], 167.64, cm, 01/29/22 10:39:00 EDT, Height/Length Dosing, 74.84, kg, 01/29/22 10:39:00 EDT, Weight Dosing Start Date: 01/29/22 Status: Ordered Zoloft 50 mg oral tablet 50 mg = 1 tab, Oral, Daily, CUCO, # 30 tab, 2 Refill(s), Pharmacy: [facility], 167.64, cm,01/29/22 10:39:00 EDT, Height/Length Dosing, [...] Results Laboratory List Name Date Automated Diff 06/25/22 CBC w/ Diff 06/25/22 Comprehensive Metabolic Panel (CMP) 06/25 Most recent to oldest [Reference Range]: 1 WBC [5.0-10.0 x10^3/mcL] 6.1 x10^3/mcL (06/25/22 10:10 AM) RBC [4.1-5.3 x10^6/mcL] 4.5 x10^6/mcL (06/25/22 10:10 AM) Neutro Auto [40.0-75.0 %] 63.4 % (06/25/22 10:10 AM) Lymph Auto [20.0-50.0 %] 28.8 % (06/25/22 10:10 AM) [place] Auto [2.0-15.0 %] 6.2 % (06/25/22 10:10 AM) Basophil Auto [0.0-1.0 %] 0.7 % (06/25/22 10:10 AM) BUN [7-18 mg/dL] 12 mg/dL (06/25/22 10:10 AM) Glucose Level [74-106 mg/dL] 96 mg/dL (06/25/22 10:10 AM) Potassium Level [3.5-5.1 mmol/L] 4.3 mmo l/L (06/25/22 10:10 AM) MCV [80.0-96.0] 93.4 (06/25/22 10:10 AM) AST [15-37 unit/L] 17 unit/L (06/25/22 10:10 AM) ALT [14-59 unit/L] 20 unit/L (06/25/22 10:10 AM) MCHC [31.0-35.0 g/dL] 32.9 g/dL (06/25/22 10:10 AM) Sodium Level [136-145 mmol/L] 137 mmol/L (06/25/22 10:10 AM) Hct [37.0-47.0 %] 42.3 % (06/25/22 10:10 AM) Calcium Level [8.5-10.1 mg/dL] 9.2 mg/dL (06/25/22 10:10 AM) Albumin Level [3.4-5.0 g/dL] 4.1 g/dL (06/25/22 10:10 AM) Protein Total [6.4-8.2 g/dL] 7.9 g/dL (06/25/22 10:10 AM) MCH [26.0-32.0 pg] 30.7 pg (06/25/22 10:10 AM) Neutro Absolute 3.9 x10^3/mcL *NA* (06/25/22 10:10 AM) Bilirubin Total [0.2-1.0 mg/dL] 0.4 mg/d L (06/25/22 10:10 AM) Hgb [12.0-16.0 g/dL] 13.9 g/dL (06/25/22 10:10 AM) Alk Phos [46-146 unit/L] 52 unit/L (06/25/22 10:10 AM) Platelets [130-450 x10^3/mcL] 266 x10^3/ mcL (06/25/22 10:10 AM) CO2 [21-32 mmol/L] 28 mmol/L (06/25/22 10:10 AM) eGFR Non-AA [>=60] 105 (06/25/22 10:10 AM) eGFR AA [>=60] 105 (06/25/22 10:10 AM) Chloride Level [98-107 mmol/L] 101 mmol/ L (06/25/22 10:10 AM) RDW-CV [11.7-17.0 %] 12.1 % (06/25/22 10:10 AM) Imm Gran Auto [0.0-0.9 %] 0.2 % (06/25/22 10:10 AM) Creatinine Level [0.55-1.02 mg/dL] 0.74 mg/dL (06/25/22 10:10 AM) Eos, Auto [1.0-6.0 %] 0.7 % *LOW* (06/25/22 10:10 AM) Social History Social History Type Response Tobacco Never tobacco user T obacco Use:. Sex Female Patient Care team information Care Team Personnel Name: Ese Leon PA-C Position: Physician Member Role: Primary Care Physician Address: Address: [address] [address]- Care Team Related Persons Name: NOAM FRIED Address: Home [address] [place], [place] [id number] Name: SR. FRIED JAMES K. Name: AGUSTIN CLEMENT Address: Home [address] [place], [id number]
--- NOTE | 2023-04-17 09:15 | DI.MRI_ITS ---
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 TECHNIQUE: Multiplanar multisequence MRA of the brain was performed. COMPARISON: CT CT SINUS WO CONTRAST from 05/16/2017 FINDINGS: Carotid Arteries: No aneurysm, occlusion or significant stenosis. Anterior Cerebral Arteries: Right: No aneurysm, occlusion or significant stenosis. Left: No aneurysm, occlusion or significant stenosis. Middle Cerebral Arteries: Right: No aneurysm, occlusion or significant stenosis. Left: No aneurysm, occlusion or significant stenosis. Posterior Cerebral Arteries: The posterior communicating arteries are seen bilaterally which are norm al variants. Right: No aneurysm, occlusion or significant stenosis. Left: No aneurysm, occlusion or significant stenosis. Vertebral Arteries: Right: No aneurysm, occlusion or significant stenosis. Left: No aneurysm, occlusion or significant stenosis. Basilar Artery: No aneurysm, occlusion or significant stenosis. IMPRESSION: Normal MRA examination of the [place] of [place]. DATA REPOSITORY:
== END ==
PROVIDERS: PCP Physician Assistant; Visit Provider Registered Nurse Maternal Newborn
DX: H93.A2 Pulsatile tinnitus, left ear (principal)
CPT/HCPCS: 70544